=== PATIENT | female | born 1940 | race Caucasian/White ===

== ENCOUNTER 2018-09-10 14:43 | Inpatient (IN) | payer MEDICARE, BC ==
--- NOTE | 2018-09-10 14:58 | ED ---
Neurological HPI - HPI Summary HPI Summary: A 77 y/o female accompanied by family presents to the ED c/o weakness, appetite changes, and generalized body myalgia reaching 5/10 in severity. In the ED room , the patient has a pulse of 99 BPM, O2 saturation of 94%, and blood pressure of 125/69. As per triage, "not eating well for a week, increased weakness, fell 2 times this week and is now using wheel chair instead of a cane. last weekend diagnosed with anemia, lymphoma, low b13. saw MD Brandt Tuesday and wasn't feeling well, today worse. generalized pain every where, unable to define root cause". According to the patient, she cannot walk/maneuver around. She stated that she feels weak, however, nothing specific, but feels "plain yucky". She denies any nausea or fever, but does have appetite changes, cough and an ear ache. She noted that she is not in any pain, but just feels uncomfortable. These symptoms have been present for about 3 days. She stated that she was fine last week. Patient has cancer and is starting her treatment next week. Patient denies any heart murmur, but stated that her leg edema started 3-4 days ago and it is not normal for her. Patient further noted that she used her cane but fell down twice 4-5 days ago, so now she uses a walker. She stated that she was feeling unstable. - History of Current Complaint Chief Complaint: EDGeneral Stated Complaint: GENERAL ILLNESS Time Seen by Provider: 09/10/18 14:55 Hx Obtained From: Patient Onset/Duration: Sudden Onset, Started weeks ago, Still Present Timing: Constant Onset Severity: Moderate - 5/10 Current Severity: Moderate - 5/10 Number of Seizures: 0 Pain Intensity: 5 Pain Scale Used: 0-10 Numeric Character: Weak Syncope Timin Number of Episodes: 0 Aggravating: Nothing Alleviating: Nothing Associated Signs and Symptoms: Positive: Weakness, Pain - GENERALIZED BODY MYALGIA. Negative: Fever - Allergy/Home Medications Allergies/Adverse Reactions: Allergies Allergy/AdvReac Type Severity Reaction Status Date / Time No Known Allergies Allergy Verified 09/10/18 14:49 Home Medications: Home Medications Multivitamin with Minerals [One Daily Complete] 1 each PO DAILY 09/10/18 [ History Confirmed 09/10/18] Naproxen Sodium [Aleve] 220 mg PO DAILY 09/10/18 [History Confirmed 09/10/18] PMH/Surg Hx/FS Hx/Imm Hx Endocrine/Hematology History: Reports: Hx Thyroid Disease - hypothyroid Cardiovascular History: Reports: Hx Hypertension Denies: Hx Myocardial Infarction Respiratory History: Reports: Other Respiratory Problems/Disorders - emphysema Neurological History: Denies: Hx CVA, Hx Transient Ischemic Attacks (TIA) Infectious Disease History: No Infectious Disease History: Denies: Traveled Outside the [place] in Last 30 Days - Family History Known Family History: Negative: Cardiac Disease, Hypertension, Diabetes - Social History Alcohol Use: Occasionally Substance Use Type: Reports: None Smoking Status (MU): Light Every Day Tobacco Smoker Review of Systems Negative: Fever Positive: Ear Ache Positive: Cough Positive: Other - POSITIVE: APPETITE CHANGES. Negative: Nausea Positive: Weakness All Other Systems Reviewed And Are Negative: Yes Physical Exam - Summary Physical Exam Summary: Appearance: The patient is well-nourished in no acute distress and in no acute pain. Skin: The skin is warm and dry and skin color reflects adequate perfusion. Skin is tense HEENT: The head is normocephalic and atraumatic. The pupils are equal and reactive. The conjunctivae are clear and without drainage. Nares are patent and without drainage. Mouth reveals dry mucous membranes and the throat is without erythema and exudate. The external ears are intact. The ear canals are patent and without drainage. The tympanic membranes are intact. Neck: The neck is supple with full range of motion and non-tender. There are no carotid bruits. There is no neck vein distension. Respiratory: Chest is non-tender. Lungs are clear to auscultation and breath sounds are symmetrical and equal. Cardiovascular: Heart is regular rate and rhythm. Systolic ejection murmur. There is no peripheral edema and pulses are symmetrical and equal. Abdomen: The abdomen is soft and non-tender. There are normal bowel sounds heard in all four quadrants and there is no organomegaly palpated. Musculoskeletal: There is no back tenderness noted. Extremities are non-tender with full range of motion. There is good capillary refill. There is no calf tenderness elicited. Mild bilateral pedal edema. Neurological: Patient is alert and oriented to person, place and time. The patient has symmetrical motor strength in all four extremities. Cranial nerves are grossly intact. Deep tendon reflexes are symmetrical and equal in all four extremities. Psychiatric: The patient has an appropriate affect and does not exhibit any anxiety or depression. Triage Information Reviewed: Yes Vital Signs On Initial Exam: Initial Vitals Temp Pulse Resp BP Pulse Ox 99.3 F 101 19 125/67 96 09/10/18 14:46 09/10/18 14:46 09/10/18 14:46 09/10/18 14:46 09/10/18 14:46 Vital Signs Reviewed: Yes Diagnostics - Vital Signs Vital Signs Temp Pulse Resp BP Pulse Ox 09/10/18 14:46 99.3 F 101 19 125/67 96 - Laboratory Result Diagrams: 09/10/18 15:27 09/10/18 15:27 Lab Statement: Any lab studies that have been ordered have been reviewed, and results considered in the medical decision making process. - Radiology CXR Radiology Interpretation Completed By: Radiologist Summary of Radiographic Findings: Left lower lung zone airspace opacification. ED PHYSICIAN REVIEWED THIS RADIOLOGY REPORT. - EKG 1523 Cardiac Rate: NL - 94 BPM EKG Rhythm: Sinus Rhythm - [address] Segment: Normal Ectopy: None Summary of EKG Findings: Normal sinus rhythm, normal ST, no ectopy, no STEMI Course/Dx - Course Course Of Treatment: Ms. Bowens presented to the emergency department with a concern for increasing weakness over the last couple days. She is at the point now where she can't get out of bed. She was clinically dry on arrival and fluids were ordered for her while workup was in progress. The radiologist read her chest x-ray as a likely infiltrate and she was given Levaquin. She labs revealed a profound dehydration and Dr. Corona was contacted. He recommended more fluid benefit can get her feeling better admission otherwise discharge and follow-up. She didn't really improve with more fluid and the hospitalists were consulted for admission. - Diagnoses Provider Diagnoses: Severe dehydration, Pneumonia - Physician Notifications Discussed Care Of Patient With: Krystian Villasenor Time Discussed With Above Provider: 18:16 Instructed by Provider To: Other - ACCEPTS FOR ADMISSION. Discharge - Sign-Out/Discharge Documenting (check all that apply): Patient Departure - ADMIT, Sign-Out Patient - CABALLKARL Signing out patient TO: Krystian Villasenor Receiving patient FROM: Jone Garsia - Discharge Plan Condition: Stable Disposition: ADMITTED TO [facility] - Billing Disposition and Condition Condition: STABLE Disposition: Admitted to [facility] - Attestation Statements Document Initiated by Jim: Yes Documenting Scribe: Donnie Garber Provider For Whom Jim is Documenting (Include Credential): Jone Garsia MD Scribe Attestation: Donnie Mcclain, scribed for Jone Garsia MD on 09/10/18 at 2143. Scribe Documentation Reviewed: Yes Provider Attestation: The documentation as recorded by the naeibDonnie lyons accurately reflects the service I personally performed and the decisions made by me, Jone Garsia MD Status of Scribe Document: Viewed
[2018-09-10] MEDS ORDERED: NS 0.9% 1000 ML* 1,000 ML IV ONE ×2 (15:10→17:30)
[2018-09-10 15:42] LABS: INR 0.94 (0.77-1.02)
[2018-09-10 15:44] LABS: Hematocrit 27 % (35-47); Hemoglobin 8.6 g/dl (12.0-16.0); Mean Corpuscular HGB Conc 32 g/dl (31-36); Mean Corpuscular Hemoglobin 30 pg (27-31); Mean Corpuscular Volume 94 fL (80-97); Mean Platelet Volume 9.4 fL (7.4-10.4); Platelet Count 63 10^3/ul (150-450); Red Blood Count 2.88 10^6/ul (4.00-5.40); Red Cell Distribution Width 17 % (10.5-15); White Blood Count 8.4 10^3/ul (3.5-10.8)
[2018-09-10 15:53] LABS: Albumin 2.8 g/dL (3.2-5.2); Albumin/Globulin Ratio 1.2 (1-3); BUN/Creatinine Ratio 44.2 (8-20); C Reactive Protein 190.55 mg/L (<8.01); Calcium 11.3 mg/dL (8.6-10.3); EGFR Non-African American 72.3 (>60); Globulin 2.3 g/dL (2-4); Magnesium 1.9 mg/dL (1.9-2.7); Potassium 4.4 mmol/L (3.5-5.0); Total Bilirubin 1.1 mg/dL (0.2-1.0); Total Protein 5.1 g/dL (6.4-8.9)
[2018-09-10 16:17] LABS: Immature Granulocytes 2 % (0-9); Lymphocytes % 79 %; Neutrophil % 13 %; Variant Lymph % 6 % (0-6)
[2018-09-10 16:18] LABS: ABS Neutrophils 1.26 10^3/ul (1.5-7.7); Nucleated Red Blood Cells/100 1 (0-0)
[2018-09-10 16:23] LABS: TSH (Thyroid Stimulating Horm) 1.61 mcIU/mL (0.34-5.60)
[2018-09-10 17:28] LABS: Urine Appearance Cloudy; Urine Bacteria 1+ (Absent); Urine Bilirubin Negative (Negative); Urine Blood 1+ (Negative); Urine Color Amber; Urine Glucose Negative (Negative); Urine Ketones Negative (Negative); Urine Nitrite Positive (Negative); Urine Protein 1+(30 mg/dL) (Negative); Urine Red Blood Cell 3+(>10/hpf) (Absent); Urine Specific Gravity 1.024 (1.010-1.030); Urine Urobilinogen Positive (Negative); Urine White Blood Cell 2+(11-20/hpf) (Absent)
[2018-09-10] MEDS ORDERED: Acetaminophen TAB* 325 MG PO ONE (18:04)
[2018-09-10] MEDS ORDERED: Levofloxacin 750 MG IVPREMIX(* 750 MG/150 ML BAG IVPB ONE (18:26)
[2018-09-10] MEDS ORDERED: Nicotine Inhaler* 10 MG AMP INH PRN (20:44)
[2018-09-10] MEDS ORDERED: Mouth Piece, Nicotine* 1 EACH CARTRIDGE INH ONE (21:00)
[2018-09-10] MEDS: NS 0.9% 1000 ML* 1,000 ML IV SCH (21:03)
[2018-09-10] MEDS: Heparin VIAL(*) 5000 UNITS/ML VIAL (FIVE THOUSAND) SUBCUT SCH (21:20)
[2018-09-10] MEDS: cefTRIAXone(*) 1 GM in NS 0.9% 50 ML* 50 ML IVPB SCH (21:20)
--- NOTE | 2018-09-10 23:38 | HP ---
CC: Dr. Job Osullivan; Dr. Collins Brandt * HISTORY AND PHYSICAL: DATE OF ADMISSION: 09/10/18 PRIMARY CARE PROVIDER: Job Osullivan MD ONCOLOGIST: Collins Brandt MD ATTENDING PHYSICIAN: Yamilet Mar DO * (dictated by Jef Archer NP) CHIEF COMPLAINT: Weakness. HISTORY OF PRESENT ILLNESS: Ms. Bowens is a 77-year-old female with past medical history significant for hypertension, hypothyroidism, COPD, and a recent diagnosis of lymphoma who presents to the emergency room with complaint of 2 weeks of generalized weakness. She has recently been diagnosed with lymphoma and scheduled to have outpatient PET scan on , 09/14/18, and to start chemotherapy on 09/15/18. She denies any fevers, chills, chest pain. She reports a nonproductive cough for 2 weeks. She reports having shortness of breath for a few days, worse with exertion. Although she has been having difficulty ambulating, she has recently had a couple falls and has started ambulating with a walker. She denies nausea, vomiting, diarrhea, abdominal pain , urinary symptoms such as dysuria, urgency, or frequency. She does note voiding 2 to 3 times at night but states this is close her normal. She reports feeling a dry mouth and dry sinuses. She did get a flu shot this fall. She denies any runny nose, congestion, myalgia, or arthralgia. She has been complaining of right ear pain and has been using over- the-counter drops for this. Additionally, she developed an intermittent headache today. She states that she has been drinking, but not eating well due to a poor appetite. Due to her weakness, she decided to present to the emergency room for further evaluation of her symptoms. While in the emergency room, she had labs showing anemia near her baseline, thrombocytopenia slightly below her baseline, but she has been thrombocytopenic since July of last year. Her sodium is slightly low. She had lactic acid of 2.2, slightly high calcium, a CRP of 190.55, alkaline phos of 373. She had urinalysis showing 1+ protein, 1+ blood, positive for nitrites, positive urobilinogen, 1+ leukocyte esterase, 2+ wbc's, 3+ rbc's, squamous epithelial cells present, 1+ bacteria. She had a chest x-ray showing a left lower lung zone airspace opacification. Additionally, she had an EKG showing a sinus rhythm, no acute signs of ischemia, and due to her symptoms and workup with the hospitalists, we are asked to evaluate the patient for admission. PAST MEDICAL HISTORY: 1. Hypertension. 2. Hypothyroidism. 3. COPD - emphysema. 4. Lymphoma. PAST SURGICAL HISTORY: Status post appendectomy. HOME MEDICATIONS: Include: 1. Naproxen 220 mg oral daily. 2. Multivitamin 1 tablet oral daily. 3. Lisinopril/hydrochlorothiazide 20/12.5; she has not been taking it; she has felt dehydrated. 4. Levothyroxine 150 mcg oral daily. ALLERGIES: No known drug allergies. FAMILY HISTORY: She denies family history of coronary artery disease, diabetes , or cancer. SOCIAL HISTORY: The patient reports being a former smoker, quitting many years ago when she had babies, but according to her son, she is a current smoker, smoking less than half a pack a day. She denies alcohol, recreational drug use. Her , Ulises Bowens, will be her surrogate decision maker in the event she is unable to make decisions for herself. REVIEW OF SYSTEMS: I performed an 11-point review of systems. All the pertinent positives and negatives are mentioned in the history of present illness. The remaining review of systems is negative. PHYSICAL EXAMINATION GENERAL APPEARANCE: She is a alert, pleasant, appears to be in no acute distress. VITAL SIGNS: Temperature 99.3, heart rate 95, respiratory rate 23, O2 sat 99% on 2 L via nasal cannula, blood pressure 115/69. HEENT: Normocephalic, atraumatic. Pupils are equal and reactive to light. Extraocular movements are intact. Ears: Unable to visualize tympanic membranes bilateral, the right ear has white moist looking cerumen and the left ear has joe- colored dry cerumen. RESPIRATORY: There is no accessory muscle use. Her lungs are clear, but diminished, bilateral. CARDIOVASCULAR: Regular rate and rhythm. S1, S2 present. There are no murmurs , rubs, or gallops heard. ABDOMEN: Soft, nontender, nondistended. Bowel sounds present x4. EXTREMITIES: There is 1+ bilateral lower extremity edema. DP and PT pulses are 1+ and symmetric. MUSCULOSKELETAL: There is no clubbing or cyanosis noted. The patient exhibits good strength in all extremities. NEUROLOGICAL: The patient is alert and oriented x4. Cranial nerves II through XII are grossly intact. PSYCHOLOGICAL: She is calm and cooperative. SKIN: There are no rashes or abnormalities seen. DIAGNOSTIC STUDIES/LABORATORY DATA: Sodium 134, potassium 4.4, chloride 101, CO2 26, BUN 34, creatinine 0.77, glucose 115. White blood cell count 8.4, hemoglobin 8.6, hematocrit 27, platelet count 63. Alk phos 373. Lactic acid 2.2. CRP 190.55. Urinalysis again shows protein 1+, blood 1+, nitrite positive, urobilinogen positive, leukocyte esterase 1+, wbc's 2+, rbc's 3+, squamous epithelial cells present, bacteria 1+. The patient has significantly elevated CRP of 190, elevated lactic acid. She is on 2 L of oxygen with sats of 98%. With her tachycardia and intermittent tachypnea, she is meeting to SIRS criteria. She has received liter of fluids in the emergency room. I will continue her on fluids. EKG showed a sinus rhythm, rate of 94. There are no acute signs of ischemia. This is similar to previous EKG from 03/29/16. Chest x-ray from today. Radiologist's impression: Left lower lung zone airspace opacification. IMPRESSION: Ms. Bowens is a 77-year-old female with a past medical history significant for hypertension, hypothyroidism, COPD, and lymphoma who presents to the emergency room with complaints of weakness, was found to have urinary tract infection, suspected typical community-acquired pneumonia, and weakness. She will be admitted as an inpatient. ASSESSMENT/PLAN: 1. Urinary tract infection. The patient has a positive urinalysis. She denies urinary symptoms. We will place her ceftriaxone and give her IV hydration. Blood cultures will be collected. 2. Suspected community-acquired pneumonia. The patient has a wide mediastinum on chest x-ray. Has had a cough for 2 weeks. I suspect this could represent a typical pneumonia. I am going to just place her on ceftriaxone. I do not feel this is atypical, so I will hold off on azithromycin and just treat her with monotherapy. Again, blood cultures have been obtained. We will check urine for Strep pneumoniae and Legionella. Additionally, we will get a sputum culture if able. 3. Weakness. The patient has generalized weakness. I suspect this is secondary to her infections. We will ask Physical Therapy to see her. 4. Hypothyroidism. The patient's TSH today 1.61. 5. Hypertension. She has been normotensive in the emergency room. I am going to continue to hold her lisinopril and hydrochlorothiazide in the setting of her acute illness and give her IV fluids. If her blood pressures remain in the 120s off of the lisinopril and hydrochlorothiazide, this could be discontinued as blood pressures are within goal range for somebody of her age. 6. Chronic obstructive pulmonary disease. There is no wheezing. No signs of COPD exacerbation at this time. She is not on any maintenance inhalers. I will monitor her closely in the setting of pneumonia for COPD exacerbation. 7. Lymphoma. Management per Oncology. 8. Tobacco abuse. The patient states she is not smoking but her son reports that she is smoking. I will offer her nicotine replacement. 9. Anemia. The patient's anemia appears to be at her baseline. 10. Fluids, electrolytes, and nutrition. She will be on heart healthy diet. 11. Code status. DNR. A MOLST form has been completed and placed on her chart. 12. DVT prophylaxis. She is at high risk. She will have subcu heparin. We are going to monitor her platelet count closely. If she drops below 50, we will hold chemical DVT prophylaxis. 13. Disposition. Inpatient. TIME SPENT: Time for this admission was approximately 60 minutes, greater than half of that was spent with the patient and her son discussing medications, past medical history, the events leading up to her arrival today and performing a physical examination. The case was reviewed with the attending, Dr. Mar, who agrees with the plan of care. JEF ARCHER, MOOSE [id number]/CPS #: [id number] TRIP
[2018-09-11] MEDS: Levothyroxine TAB* 150 MCG TAB PO SCH (05:07)
[2018-09-11] MEDS: Heparin VIAL(*) 5000 UNITS/ML VIAL (FIVE THOUSAND) SUBCUT SCH ×2 (05:07→14:34)
[2018-09-11 06:48] LABS: Hematocrit 24 % (35-47); Hemoglobin 7.5 g/dl (12.0-16.0); Mean Corpuscular HGB Conc 32 g/dl (31-36); Mean Corpuscular Hemoglobin 30 pg (27-31); Mean Corpuscular Volume 94 fL (80-97); Mean Platelet Volume 9.5 fL (7.4-10.4); Platelet Count 43 10^3/ul (150-450); Red Blood Count 2.54 10^6/ul (4.00-5.40); Red Cell Distribution Width 18 % (10.5-15); White Blood Count 7.3 10^3/ul (3.5-10.8)
[2018-09-11 06:56] LABS: BUN/Creatinine Ratio 39.4 (8-20); C Reactive Protein 169.77 mg/L (<8.01); Calcium 10.1 mg/dL (8.6-10.3); EGFR Non-African American 86.4 (>60); Potassium 4.3 mmol/L (3.5-5.0)
[2018-09-11 07:51] LABS: Lymphocytes % 52 %; Monocytes % 5 %; Neutrophil % 36 %; Nucleated Red Blood Cells/100 1 (0-0); Variant Lymph % 7 % (0-6)
[2018-09-11 07:52] LABS: Polychromasia 1+; Tear Drop Cells 1+
[2018-09-11 07:55] LABS: ABS Neutrophils 2.6 10^3/ul (1.5-7.7)
[2018-09-11] MEDS: NS 0.9% 1000 ML* 1,000 ML IV SCH (08:30)
--- NOTE | 2018-09-11 09:21 | PN ---
Progress Note - Progress Note Date of Service: 09/11/18 SOAP: Subjective: []Not feeling much better. Progressive weakness over 2 weeks. No fevers at home. Polyuria, no cough no SOB. Acetaminophen (Tylenol Tab*) 650 mg PO Q4H PRN PRN Reason: FEVER/PAIN Heparin Sodium (Porcine) (Heparin Vial(*)) 5,000 units SUBCUT Q8HR [facility] Last Admin: 09/11/18 05:07 Dose: 5,000 units Ceftriaxone Sodium 1 gm/ (Sodium Chloride) 50 mls @ 200 mls/hr IVPB Q24H [facility] Last Admin: 09/10/18 21:20 Dose: 200 mls/hr Sodium Chloride (Ns 0.9% 1000 Ml*) 1,000 mls @ 100 mls/hr IV PER RATE [facility] Last Admin: 09/11/18 08:30 Dose: 100 mls/hr Levothyroxine Sodium (Synthroid Tab*) 150 mcg PO 0600 [facility] Last Admin: 09/11/18 05:07 Dose: 150 mcg Nicotine (Nicotine Inhaler*) 10 mg INH Q2H PRN PRN Reason: CRAVING Objective: [] Vital Signs Temp Pulse Resp BP Pulse Ox 97.6 F 101 22 109/60 96 09/11/18 08:11 09/11/18 08:11 09/11/18 08:11 09/11/18 08:11 09/11/18 08:11 HEENT pale, no lesions CTA RRR S1S2 +BS, cannot feel spleen Tr edema Laboratory Results - last 24 hr 09/10/18 09/10/18 09/10/18 15:27 15:27 15:27 WBC 8.4 RBC 2.88 L Hgb 8.6 L Hct 27 L MCV 94 MCH 30 MCHC 32 RDW 17 H Plt Count 63 L MPV 9.4 Neut % (Auto) Not Reportable Lymph % (Auto) Not Reportable Quay % (Auto) Not Reportable Eos % (Auto) Not Reportable Baso % (Auto) Not Reportable Absolute Neuts (auto) Not Reportable Absolute Lymphs (auto) Not Reportable Absolute Monos (auto) Not Reportable Absolute Eos (auto) Not Reportable Absolute Basos (auto) Not Reportable Absolute Nucleated RBC Not Reportable Immature Gran % 2 Neutrophils % 13 Band Neutrophils % 2 Lymphocytes % 79 Reactive Lymphs % 6 Monocytes % Nucleated RBC % Not Reportable Abs Neuts (Manual) 1.26 L Abs Lymphs (Manual) 7.225 H Abs Monocytes (Manual) Nucleated RBCs/100 WBC 1 H Normal RBC Morphology Normal Polychromasia Anisocytosis Tear Drop Cells INR (Anticoag Therapy) 0.94 Sodium 134 L Potassium 4.4 Chloride 101 Carbon Dioxide 26 Anion Gap 7 BUN 34 H Creatinine 0.77 Est GFR ( Amer) 87.5 Est GFR (Non-Af Amer) 72.3 BUN/Creatinine Ratio 44.2 H Glucose 115 H Lactic Acid Calcium 11.3 H Magnesium 1.9 Total Bilirubin 1.10 H AST 65 H ALT 44 Alkaline Phosphatase 373 H Troponin I 0.01 C-Reactive Protein 190.55 H B-Natriuretic Peptide Total Protein 5.1 L Albumin 2.8 L Globulin 2.3 Albumin/Globulin Ratio 1.2 TSH 1.61 Urine Color Urine Appearance Urine pH Ur Specific [place] Urine Protein Urine Ketones Urine Blood Urine Nitrate Urine Bilirubin Urine Urobilinogen Ur Leukocyte Esterase Urine WBC (Auto) Urine RBC (Auto) Ur Squamous Epith Cells Urine Bacteria Urine Glucose 09/10/18 09/10/18 09/10/18 15:27 15:27 17:17 WBC RBC Hgb Hct MCV MCH MCHC RDW Plt Count MPV Neut % (Auto) Lymph % (Auto) Quay % (Auto) Eos % (Auto) Baso % (Auto) Absolute Neuts (auto) Absolute Lymphs (auto) Absolute Monos (auto) Absolute Eos (auto) Absolute Basos (auto) Absolute Nucleated RBC Immature Gran % Neutrophils % Band Neutrophils % Lymphocytes % Reactive Lymphs % Monocytes % Nucleated RBC % Abs Neuts (Manual) Abs Lymphs (Manual) Abs Monocytes (Manual) Nucleated RBCs/100 WBC Normal RBC Morphology Polychromasia Anisocytosis Tear Drop Cells INR (Anticoag Therapy) Sodium Potassium Chloride Carbon Dioxide Anion Gap BUN Creatinine Est GFR ( Amer) Est GFR (Non-Af Amer) BUN/Creatinine Ratio Glucose Lactic Acid 2.2 H* Calcium Magnesium Total Bilirubin AST ALT Alkaline Phosphatase Troponin I C-Reactive Protein B-Natriuretic Peptide 32 Total Protein Albumin Globulin Albumin/Globulin Ratio TSH Urine Color Veronica Urine Appearance Cloudy Urine pH 5.0 Ur Specific [place] 1.024 Urine Protein 1+(30 mg/dl) A Urine Ketones Negative Urine Blood 1+ A Urine Nitrate Positive A Urine Bilirubin Negative Urine Urobilinogen Positive A Ur Leukocyte Esterase 1+ A Urine WBC (Auto) 2+(11-20/hpf) A Urine RBC (Auto) 3+(>10/hpf) A Ur Squamous Epith Cells Present A Urine Bacteria 1+ A Urine Glucose Negative 09/10/18 09/11/18 09/11/18 19:35 06:25 06:25 WBC 7.3 RBC 2.54 L Hgb 7.5 L Hct 24 L MCV 94 MCH 30 MCHC 32 RDW 18 H Plt Count 43 L MPV 9.5 Neut % (Auto) Not Reportable Lymph % (Auto) Not Reportable Quay % (Auto) Not Reportable Eos % (Auto) Not Reportable Baso % (Auto) Not Reportable Absolute Neuts (auto) Absolute Lymphs (auto) Pharmaceutical Service Representative Absolute Monos (auto) Pharmaceutical Service Representative Absolute Eos (auto) Pharmaceutical Service Representative Absolute Basos (auto) Pharmaceutical Service Representative Absolute Nucleated RBC Not Reportable Immature Gran % Neutrophils % 36 Band Neutrophils % Lymphocytes % 52 Reactive Lymphs % 7 H Monocytes % 5 Nucleated RBC % Not Reportable Abs Neuts (Manual) 2.6 Abs Lymphs (Manual) 4.3 Abs Monocytes (Manual) 0.4 Nucleated RBCs/100 WBC 1 H Normal RBC Morphology Not Reportable Polychromasia 1+ Anisocytosis 1+ Tear Drop Cells 1+ INR (Anticoag Therapy) Sodium 135 Potassium 4.3 Chloride 106 Carbon Dioxide 24 Anion Gap 5 BUN 26 H Creatinine 0.66 Est GFR ( Amer) 104.5 Est GFR (Non-Af Amer) 86.4 BUN/Creatinine Ratio 39.4 H Glucose 94 Lactic Acid 0.9 Calcium 10.1 Magnesium Total Bilirubin AST ALT Alkaline Phosphatase Troponin I C-Reactive Protein 169.77 H B-Natriuretic Peptide Total Protein Albumin Globulin Albumin/Globulin Ratio TSH Urine Color Urine Appearance Urine pH Ur Specific [place] Urine Protein Urine Ketones Urine Blood Urine Nitrate Urine Bilirubin Urine Urobilinogen Ur Leukocyte Esterase Urine WBC (Auto) Urine RBC (Auto) Ur Squamous Epith Cells Urine Bacteria Urine Glucose Assessment: []77 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 Presents with progressive weakness. Evaluation + UTI, modest increase in Lactic acid. Now volume replete and on antibiotics but still not feeling well. DDx for weakness is lymphoma and UTI. Plan: []1. Continue Ceftriaxone 2. Low blood counts 2nd to MZL, Tx 2 UPRBC and hold IVF 3. If not better in next 2 days, CT scan. If significant disease burden, will to to R-CVP over Rituximab single agent.
[2018-09-11] MEDS: cefTRIAXone(*) 1 GM in NS 0.9% 50 ML* 50 ML IVPB SCH (20:00)
[2018-09-12] MEDS: Levothyroxine TAB* 150 MCG TAB PO SCH (05:29)
[2018-09-12 07:01] LABS: Albumin 2.1 g/dL (3.2-5.2); Albumin/Globulin Ratio 0.9 (1-3); EGFR Non-African American 106.6 (>60); Globulin 2.3 g/dL (2-4); Potassium 3.9 mmol/L (3.5-5.0); Total Bilirubin 1.1 mg/dL (0.2-1.0); Total Protein 4.4 g/dL (6.4-8.9)
[2018-09-12 08:58] LABS: Hematocrit 27 % (35-47); Hemoglobin 8.8 g/dl (12.0-16.0); Mean Corpuscular HGB Conc 33 g/dl (31-36); Mean Corpuscular Hemoglobin 30 pg (27-31); Mean Corpuscular Volume 92 fL (80-97); Red Blood Count 2.93 10^6/ul (4.00-5.40); Red Cell Distribution Width 18 % (10.5-15); White Blood Count 10.7 10^3/ul (3.5-10.8)
[2018-09-12 09:19] LABS: Immature Granulocytes 1 % (0-9); Lymphocytes % 66 %; Monocytes % 5 %; Neutrophil % 12 %; Nucleated Red Blood Cells/100 1 (0-0); Variant Lymph % 16 % (0-6)
[2018-09-12 09:22] LABS: Polychromasia 1+
[2018-09-12 09:27] LABS: ABS Neutrophils 1.39 10^3/ul (1.5-7.7)
[2018-09-12] MEDS ORDERED: Iohexol 300* (CONTRAST) 10 ML SDV IV ONE (10:11)
[2018-09-12 10:41] LABS: Mean Platelet Volume 10.8 fL (7.4-10.4); Platelet Count 41 10^3/ul (150-450)
[2018-09-12] MEDS: cefTRIAXone(*) 1 GM in NS 0.9% 50 ML* 50 ML IVPB SCH (20:21)
[2018-09-13] MEDS: Acetaminophen TAB* 325 MG PO PRN ×2 (01:40→19:44)
[2018-09-13] MEDS: Levothyroxine TAB* 150 MCG TAB PO SCH (05:27)
[2018-09-13 07:17] LABS: ABS Nucleated RBC 0 10^3/ul; Hematocrit 30 % (35-47); Hemoglobin 9.7 g/dl (12.0-16.0); Mean Corpuscular HGB Conc 32 g/dl (31-36); Mean Corpuscular Hemoglobin 29 pg (27-31); Mean Corpuscular Volume 91 fL (80-97); Mean Platelet Volume 9.8 fL (7.4-10.4); Nucleated Red Blood Cells % 0.2; Platelet Count 36 10^3/ul (150-450); Red Blood Count 3.32 10^6/ul (4.00-5.40); Red Cell Distribution Width 17 % (10.5-15); White Blood Count 11.1 10^3/ul (3.5-10.8)
[2018-09-13] MEDS ORDERED: Loperamide CAP* 2 MG PO PRN (10:32)
[2018-09-13 12:59] LABS: Immature Granulocytes 1 % (0-9); Lymphocytes % 46 %; Neutrophil % 16 %; Variant Lymph % 37 % (0-6)
[2018-09-13 13:01] LABS: Polychromasia 1+
[2018-09-13 13:03] LABS: ABS Neutrophils 1.9 10^3/ul (1.5-7.7)
--- NOTE | 2018-09-13 15:41 | PN ---
Progress Note - Progress Note Date of Service: 09/13/18 SOAP: Subjective: []Pt. seen and examine this AM. Feeling well today and has been up moving in room fairly independently. Would like to go home. Denies pain with urination. Has been having some frequent, loose BMs. Has been coughing, but only a little and denies overt SOB. Spoke with patient's son, Landen, over the phone who states multiple concerns regarding Mrs. Bowens's ability to go home independently due to limited support from her disabled . Medications: Acetaminophen (Tylenol Tab*) 650 mg PO Q4H PRN PRN Reason: FEVER/PAIN Last Admin: 09/13/18 01:40 Dose: 650 mg Ceftriaxone Sodium 1 gm/ (Sodium Chloride) 50 mls @ 200 mls/hr IVPB Q24H JOHNNIE Last Admin: 09/12/18 20:21 Dose: 200 mls/hr Levothyroxine Sodium (Synthroid Tab*) 150 mcg PO 0600 JOHNNIE Last Admin: 09/13/18 05:27 Dose: 150 mcg Loperamide HCl (Imodium Cap*) 2 mg PO Q2H PRN PRN Reason: DIARRHEA Nicotine (Nicotine Inhaler*) 10 mg INH Q2H PRN PRN Reason: CRAVING Objective: [] Vital Signs Temp Pulse Resp BP Pulse Ox 96.9 F 86 20 117/61 100 09/13/18 11:25 09/13/18 11:25 09/13/18 11:25 09/13/18 11:25 09/13/18 11:25 A&Ox3, EOMI, neuro grossly non-focal HRR, S1S2 LS with fine crackles to bases, no wheeze noted +BS, abd. soft and non-tender Spleen edge approx. 3-4 cm below ribs Trace peripheral edema Laboratory Results - last 24 hr 09/13/18 07:05 WBC 11.1 H RBC 3.32 L Hgb 9.7 L Hct 30 L MCV 91 MCH 29 MCHC 32 RDW 17 H Plt Count 36 L MPV 9.8 Absolute Nucleated RBC 0 Immature Gran % 1 Neutrophils % 16 Band Neutrophils % 1 Lymphocytes % 46 Reactive Lymphs % 37 H D Nucleated RBC % 0.2 Abs Neuts (Manual) 1.9 Abs Lymphs (Manual) 9.2 H Normal RBC Morphology Not Reportable Polychromasia 1+ Hypochromasia 1+ Anisocytosis 1+ Elliptocytes 1+ Assessment: []77 yo with recent diagnosis of marginal zone lymphoma presenting to the ER with progressive weakness found to have a UTI as well bilateral infiltrates on CT of chest yesterday. She has improved clinically and we discussed discharge at length, she is agreeable to subacute rehab. Plan: []1. Infection: PNA and UTI appear to be resolving in terms of her clinical presentation - may consider repeat CT chest in 8 weeks to follow though if she is asymptomatic may not require - plan d/c with oral antibiotics to complete 14 days (day 4 today) 2. Lymphoma: CT with spleen at least 17 cm, question of splenic marginal zone lymphoma as there is not a high burden of adenopathy otherwise - plan Rituximab weekly x4, delay start until next week Dispo: d/c tomorrow to [facility] (bed offered however can not accept patients after 2pm) >40 min spent with >50% face to face counseling
[2018-09-13] MEDS: cefTRIAXone(*) 1 GM in NS 0.9% 50 ML* 50 ML IVPB SCH (19:42)
[2018-09-14] MEDS: Levothyroxine TAB* 150 MCG TAB PO SCH (07:35)
--- NOTE | 2018-09-14 11:12 | DS ---
CC: Dr. Osullivan; Dr. Brandt * DISCHARGE SUMMARY: DATE OF ADMISSION: 09/10/18 DATE OF DISCHARGE: 09/14/18 PRIMARY CARE PROVIDER: Dr. Osullivan. PRIMARY ONCOLOGIST: Dr. Brandt. ATTENDING PHYSICIAN: Dr. Corona.* (DICTATED BY MARISEL SOUSA) DISCHARGING PROVIDER: MARISEL Sousa. PRIMARY DISCHARGE DIAGNOSES: 1. Pneumonia. 2. Urinary tract infection. 3. Marginal zone lymphoma. 4. Significant splenomegaly secondary to lymphoma. 5. Anemia and thrombocytopenia likely secondary to bone marrow infiltration secondary to her lymphoma. SECONDARY DISCHARGE DIAGNOSES: 1. Hypertension - normotensive to slightly hypotensive during this hospitalization and her antihypertensive medications were discontinued at the time of discharge. 2. Hypothyroidism - currently euthyroid state. 3. History of chronic obstructive pulmonary disease without associated exacerbation. HOSPITAL IMAGIN. Chest x-ray 09/10/18 shows a left lower lung zone air space opacification. 2. CT chest, abdomen and pelvis shows multifocal consolidation within both lungs and small to moderate bilateral pleural effusions. Liver measures 20 cm with a partially calcified cyst. The spleen is enlarged measuring up to 22 cm in long axis with mesenteric and retroperitoneal lymphadenopathy primarily in the upper abdomen with a small amount of ascites. DISCHARGE MEDICATIONS: 1. Levothyroxine 150 mcg p.o. daily. 2. Multivitamin 1 tablet p.o. daily. 3. Levaquin 500 mg p.o. daily x10 days. HOSPITAL COURSE: This is a 77-year-old female with a recent diagnosis of lymphoma currently under the care of Dr. Brandt who presented to the emergency department with complaints of generalized malaise over the preceding 2 weeks. She had had a mild dry cough, but afebrile. Initial labs showed anemia and thrombocytopenia, but no leukocytosis. Her initial chemistries showed mildly elevated lactic acid to 2.2, slight elevation in transaminases, significantly elevated CRP to 190 and a normal TSH of 1.62. She was afebrile at the time. Initial chest x-ray demonstrated a left lower lobe infiltrates in her urinalysis was suggestive of a urinary tract infection. Patient was subsequently admitted for pneumonia and urinary tract infection and was subsequently treated with ceftriaxone. Patient's energy improved and she remained afebrile throughout her hospitalization. She was not hypoxic or had other respiratory complications. Her urine culture grew E. coli, which was layton sensitive and blood cultures remained negative. CT chest, abdomen and pelvis demonstrated bilateral infiltrates [employer] representative of pneumonia as well as a very large spleen measuring up to 22 cm in long axis with associated mesenteric and retroperitoneal lymphadenopathy reflective of her known lymphoma. She was initially scheduled to start chemotherapy with weekly rituximab treatments on Tuesday09/15/18, but due to her acute infection, this has been delayed to start Tuesday09/18/18. The patient has had progressive thrombocytopenia likely secondary to her lymphoma during this hospitalization and her platelets at the time of discharge are 36,000. DISPOSITION AND FOLLOWUP PLAN: The patient is being discharged to [facility] for subacute rehab with plans to start weekly rituximab therapy x4 cycles for marginal zone lymphoma. The patient will follow up Dr. Brandt in the clinic on at 12 p.m. Recommend Levaquin for additional 10 days for continued and definitive of her pneumonia and urinary tract infection. MARISEL SOUSA [id number]/[facility] #: [id number] [facility]OSPITAL CENTERBrodie
[2018-09-14 12:33] VITALS: BP 108/60
== END 2018-09-14 13:24 | DRG 689 ==
LOC: ED 14:43 → MED 19:20
PROVIDERS: ADMIT Internal Medicine; ATTEND Internal Medicine Hematology & Oncology
PROC: 30233N1 Transfusion of Nonautologous Red Blood Cells into Peripheral Vein, Percutaneous Approach (ICD-10-PCS; principal; 2018-09-11)
DX: N39.0 Urinary tract infection, site not specified (principal); J18.9 Pneumonia, unspecified organism; C85.90 Non-Hodgkin lymphoma, unspecified, unspecified site; J90 Pleural effusion, not elsewhere classified; R18.8 Other ascites; E03.9 Hypothyroidism, unspecified; I10 Essential (primary) hypertension; E86.0 Dehydration; J43.9 Emphysema, unspecified; H92.01 Otalgia, right ear; D64.9 Anemia, unspecified; D69.6 Thrombocytopenia, unspecified; B96.20 Unspecified Escherichia coli [E. coli] as the cause of diseases classified elsewhere; F17.210 Nicotine dependence, cigarettes, uncomplicated; R16.1 Splenomegaly, not elsewhere classified; K76.89 Other specified diseases of liver; R59.0 Localized enlarged lymph nodes; Z72.89 Other problems related to lifestyle
CPT/HCPCS: 36415; 71045; 71260; 74177; 80048; 80053; 81003; 81015; 81479; 83605; 83735; 83880; 84443; 84484; 85025; 85060; 85610; 86140; 86850; 86900; 86901; 86922; 87040; 87077; 87086; 87186; 87899; 93005; 99232; 99239; 99284; A9270-GY; G8978-GP-CK; G8979-GP-CJ; J0696; J1644; P9040; Q9967

== ENCOUNTER 2018-10-05 14:12 | Inpatient (IN) | payer MEDICARE, BC ==
[2018-10-05] MEDS ORDERED: NS 0.9% 1000 ML** 1,000 ML IV ONE (14:51)
--- NOTE | 2018-10-05 14:55 | ED ---
Shortness of Breath - HPI Summary HPI Summary: Patient is a 77-year-old female on chemotherapy and hx of lymphoma presenting with worsening thrush. Patient has been being treated with oral nystatin for thrush for several weeks since beginning chemotherapy, but notes it has gotten worse 2 days ago after her most recent round of chemo. Patient experienced difficulty breathing/shortness of breath last night and was placed on 2L of oxygen. Also admits to cough and mouth pain. Patient has not been able to eat or drink due to the pain. Patient denies chest pain, fever, headache, N/V/D, or urinary symptoms. no fevers. - History of Current Complaint Chief Complaint: EDShortnessOfBreath Time Seen by Provider: 10/05/18 14:34 Hx Obtained From: Patient Onset/Duration: Gradual Onset, Worse Since - 2 days ago Timing: Constant Current Severity: Severe Aggrevating Factors: Other - swallowing Alleviating Factors: Oxygen Associated Signs & Symptoms: Cough (Productive) - Allergy/Home Medications Allergies/Adverse Reactions: Allergies Allergy/AdvReac Type Severity Reaction Status Date / Time No Known Allergies Allergy Verified 10/05/18 14:16 Home Medications: Home Medications Acetaminophen TAB* [Tylenol TAB*] 650 mg PO Q4H PRN 10/05/18 [History Confirmed 10/05/18] Lactose-Reduced Food [Ensure Liquid] 237 ml PO ACHS 10/05/18 [History Confirmed 10/05/18] Levothyroxine TAB* [Synthroid TAB*] 150 mcg PO DAILY 10/05/18 [History Confirmed 10/05/18] PMH/Surg Hx/FS Hx/Imm Hx Endocrine/Hematology History: Reports: Hx Thyroid Disease - hypothyroid Denies: Hx Diabetes Cardiovascular History: Reports: Hx Hypertension Denies: Hx Myocardial Infarction Respiratory History: Reports: Other Respiratory Problems/Disorders - emphysema History: Denies: Hx Renal Disease Sensory History: Reports: Hx Contacts or Glasses - Glasses, son took home with him Denies: Hx Hearing Aid Opthamlomology History: Reports: Hx Contacts or Glasses - Glasses, son took home with him Neurological History: Denies: Hx CVA, Hx Transient Ischemic Attacks (TIA) - Cancer History Hx Chemotherapy: Yes Infectious Disease History: No Infectious Disease History: Denies: Traveled Outside the [place] in Last 30 Days - Family History Known Family History: Negative: Cardiac Disease, Hypertension, Diabetes - Social History Alcohol Use: None Substance Use Type: Reports: None Smoking Status (MU): Light Every Day Tobacco Smoker Review of Systems Negative: Fever, Chills Eyes: Negative Positive: Other - Mouth pain . Negative: Sore Throat Negative: Palpitations, Chest Pain Positive: Shortness Of Breath, Cough Gastrointestinal: Negative Negative: Abdominal Pain, Vomiting, Diarrhea, Nausea Genitourinary: Negative Negative: pain Skin: Negative Neurological: Negative Negative: Headache Psychological: Normal All Other Systems Reviewed And Are Negative: Yes Physical Exam Triage Information Reviewed: Yes Vital Signs On Initial Exam: Initial Vitals Temp Pulse Resp BP Pulse Ox 99.7 F 97 20 146/96 95 10/05/18 14:16 10/05/18 14:16 10/05/18 14:16 10/05/18 14:16 10/05/18 14:16 Vital Signs Reviewed: Yes Appearance: Positive: Ill-Appearing, Pain Distress, Thin Skin: Positive: Warm, Dry, Pale Head/Face: Positive: Normal Head/Face Inspection Eyes: Positive: Normal, EOMI, EVER ENT: Positive: Hearing grossly normal - wears hearing aid, Pharyngeal erythema, TMs normal, Other - Oral cavity with thick, blood-tinged secretions. Pharynx with erythema and heavy secretions. Thick-white patches along side of mouth. Poor dentition. Chapped right lower lip with small amount of bleeding.. Negative: Nasal congestion, Nasal drainage Dental: Positive: Other - Poor dentition Neck: Positive: Supple, Nontender, No Lymphadenopathy Respiratory/Lung Sounds: Positive: Clear to Auscultation, Breath Sounds Present Cardiovascular: Positive: Normal, RRR Abdomen Description: Positive: Nontender, No Organomegaly, Soft Bowel Sounds: Positive: Present Musculoskeletal: Positive: Normal, Strength/ROM Intact Neurological: Positive: Normal, Sensory/Motor Intact, Alert, Oriented to Person Place, Time, CN Intact II-III Psychiatric: Positive: Normal AVPU Assessment: Alert Diagnostics - Vital Signs Vital Signs Temp Pulse Resp BP Pulse Ox 10/05/18 14:16 99.7 F 97 20 146/96 95 - Laboratory Result Diagrams: 10/05/18 15:01 10/05/18 15:01 Lab Statement: Any lab studies that have been ordered have been reviewed, and results considered in the medical decision making process. - Radiology chest Radiology Interpretation Completed By: Radiologist Summary of Radiographic Findings: IMPRESSION: Cardiomegaly with interstitial edema consistent with left pleural effusion and. CHF. - EKG No standard instances Cardiac Rate: NL EKG Rhythm: Sinus Rhythm EKG Comparison: No Significant Change Summary of EKG Findings: sinus rhythm Re-Evaluation - Re-Evaluation First Eval Comment: patient states will not eat or drink due to pain. will try GI cocktail for pain. Second Eval Re-Evaluation Time: 16:46 Comment: o2 stats dropped to 78 requiring o2 to be increased till 6 liters on nasal cannuli. nurse had to perform sunction at patient is not able to clear throat. Course/Dx - Course Course Of Treatment: 77 -year-old female presents with mouth pain for the past couple days. States she is on nystatin for candidiasis. She states that after he fell on Tuesday she has been having twitching that she does not want to eat or drink. States she feels very weak. She also noticed increased edema in her legs. No chest pain or shortness breath. She notes occasional cough. On exam has edema noted to legs. Mouth has thick secretions with white discharge across her pharynx. lab work wbc low 1.7. kidney function is okay. discussed with pritesh burr who recommends start fluconazole. gave gi cocktail and no relief. she attempted to drink fluid but was unable to. gave dose of IV fluconazole. patient then dropped her o2 stat to 78 and required increase in oxygen to 6liters nasal cannuli which she can not go back to half-way with. discussed with pritesh burr who agrees to admit. - Diagnoses Differential Diagnosis/HQI/PQRI: Positive: CHF, Pulmonary Edema, Other - candidiasis Provider Diagnoses: CHF (congestive heart failure), Oral candidiasis Discharge - Sign-Out/Discharge Documenting (check all that apply): Patient Departure - Discharge Plan Condition: Stable Disposition: ADMITTED TO [facility] Referrals: Job Osullivan MD [Primary Care Provider] - - Billing Disposition and Condition Condition: STABLE Disposition: Admitted to [facility]
[2018-10-05 15:23] LABS: Hematocrit 25 % (35-47); Hemoglobin 8.2 g/dl (12.0-16.0); Mean Corpuscular HGB Conc 33 g/dl (31-36); Mean Corpuscular Hemoglobin 30 pg (27-31); Mean Corpuscular Volume 92 fL (80-97); Mean Platelet Volume 10.1 fL (7.4-10.4); Platelet Count 36 10^3/ul (150-450); Red Blood Count 2.75 10^6/ul (4.00-5.40); Red Cell Distribution Width 18 % (10.5-15); White Blood Count 1.7 10^3/ul (3.5-10.8)
[2018-10-05 15:31] LABS: Albumin 2.5 g/dL (3.2-5.2); Albumin/Globulin Ratio 1.1 (1-3); BUN/Creatinine Ratio 47.5 (8-20); Calcium 8.9 mg/dL (8.6-10.3); EGFR African American 186.3 (>60); Globulin 2.2 g/dL (2-4); Potassium 3.5 mmol/L (3.5-5.0); Total Protein 4.7 g/dL (6.4-8.9)
[2018-10-05 15:32] LABS: Troponin I 0.01 ng/mL (<0.04)
[2018-10-05 15:37] LABS: Influenza A Molecular NEGATIVE (Negative); Influenza B Molecular NEGATIVE (Negative)
[2018-10-05 15:44] LABS: INR 1.09 (0.77-1.02)
[2018-10-05 15:45] LABS: Activated Partial Thrombo Time 30.8 seconds (26.0-36.3)
[2018-10-05] MEDS ORDERED: Al Hydrox/Mg Hydrox/Simet LIQ* 30 ML UDC PO ONE (15:58)
[2018-10-05] MEDS ORDERED: Lidocaine 2% VISCOUS* 15 ML UDC PO ONE (15:58)
[2018-10-05 16:07] LABS: Immature Granulocytes 4 % (0-9); Lymphocytes % 50 %; Monocytes % 1 %; Neutrophil % 21 %; Variant Lymph % 24 % (0-6)
[2018-10-05 16:12] LABS: ABS Neutrophils 0.4 10^3/ul (1.5-7.7)
[2018-10-05] MEDS ORDERED: Fluconazole 200 MG IVPREMIX(*) 200 MG/100 ML BAG IV ONE (17:00)
[2018-10-05] MEDS ORDERED: Fluconazole 100 MG TAB* TAB PO SCH (17:00)
[2018-10-05] MEDS ORDERED: Furosemide IV* 10 MG/ML VIAL (40 MG) IV SLOW PU ONE (17:22)
[2018-10-05] MEDS ORDERED: Acetaminophen TAB* 325 MG PO PRN (17:33)
[2018-10-05 17:51] LABS: C Reactive Protein 224.72 mg/L (<8.01)
[2018-10-05 18:36] LABS: Erythrocyte Sed Rate 51 mm/Hr (0-40)
[2018-10-05] MEDS: Magic Mouth Was-BEN/MAAL/LIDO SWISH SPIT SCH (21:09)
[2018-10-06] MEDS: Levothyroxine TAB* 150 MCG TAB PO SCH ×2 (05:22→05:25)
[2018-10-06 05:54] LABS: ABS Basophils 0 10^3/ul (0-0.2); ABS Eosinophils 0 10^3/ul (0-0.6); ABS Lymphocytes 0.1 10^3/ul (1.0-4.8); ABS Monocytes 1.3 10^3/ul (0-0.8); ABS Neutrophils 0.5 10^3/ul (1.5-7.7); ABS Nucleated RBC 0 10^3/ul; Eosinophil % 0.1 %; Hematocrit 29 % (35-47); Hemoglobin 9.2 g/dl (12.0-16.0); Lymphocyte % 5.1 %; Mean Corpuscular HGB Conc 32 g/dl (31-36); Mean Corpuscular Hemoglobin 30 pg (27-31); Mean Corpuscular Volume 92 fL (80-97); Mean Platelet Volume 9.4 fL (7.4-10.4); Nucleated Red Blood Cells % 0.3; Platelet Count 36 10^3/ul (150-450); Red Cell Distribution Width 18 % (10.5-15); White Blood Count 1.9 10^3/ul (3.5-10.8)
[2018-10-06 06:14] LABS: Albumin 2.5 g/dL (3.2-5.2); BUN/Creatinine Ratio 38.9 (8-20); Calcium 9.2 mg/dL (8.6-10.3); EGFR African American 131.8 (>60); EGFR Non-African American 108.9 (>60); Globulin 2.5 g/dL (2-4); Magnesium 1.9 mg/dL (1.9-2.7); Potassium 3.3 mmol/L (3.5-5.0); Total Bilirubin 1.5 mg/dL (0.2-1.0)
[2018-10-06 07:19] LABS: Lymphocytes % 61 %; Metamyelocytes % 1 % (0-2); Monocytes % 4 %; Neutrophil % 7 %
[2018-10-06 07:20] LABS: Immature Granulocytes 12 % (0-9); Myelocytes % 2 % (0-1); Variant Lymph % 16 % (0-6)
[2018-10-06 07:21] LABS: ABS Neutrophils 0.361 10^3/ul (1.5-7.7)
[2018-10-06] MEDS: Magic Mouth Was-BEN/MAAL/LIDO SWISH SPIT SCH ×5 (08:47→20:56)
[2018-10-06] MEDS ORDERED: Furosemide IV* 10 MG/ML VIAL (40 MG) ONE (09:15)
--- NOTE | 2018-10-06 09:55 | PN ---
Progress Note - Progress Note Date of Service: 10/06/18 SOAP: Subjective: [Admitted overnight with severe thrush/mucositis and acute dyspnea following fluid infusion. Overnight O2 saturations were maintained in the mid 90s on 4L supp O2 after receiving Lasix in the ER. She had some difficulty swallowing this am and her am meds were held. She suddenly became more dyspneic and O2 saturations dropped to the high 70s with thick secretions in the oropharynx and upper airways. Oropharyngeal suctioning did not help. She was then given 40 mg IV Lasix and respiratory therapy performed deep suctioning with improvement in her dyspnea. O2 saturations improved to the high 80s. Decision made to move patient to ICU for Vapotherm.] Objective: [ Laboratory Results - last 24 hr 10/05/18 10/05/18 10/05/18 15:01 15:01 15:01 WBC 1.7 L RBC 2.75 L Hgb 8.2 L Hct 25 L MCV 92 MCH 30 MCHC 33 RDW 18 H Plt Count 36 L MPV 10.1 Neut % (Auto) Not Reportable Lymph % (Auto) Not Reportable Campbell % (Auto) Not Reportable Eos % (Auto) Not Reportable Baso % (Auto) Not Reportable Absolute Neuts (auto) Not Reportable Absolute Lymphs (auto) Not Reportable Absolute Monos (auto) Not Reportable Absolute Eos (auto) Not Reportable Absolute Basos (auto) Not Reportable Absolute Nucleated RBC Not Reportable Immature Gran % 4 Neutrophils % 21 Band Neutrophils % 4 Lymphocytes % 50 Reactive Lymphs % 24 H D Monocytes % 1 Metamyelocytes % Myelocytes % Nucleated RBC % Not Reportable Abs Neuts (Manual) 0.4 L* Abs Lymphs (Manual) 1.25 Abs Monocytes (Manual) 0.01 Normal RBC Morphology Normal ESR 51 H INR (Anticoag Therapy) 1.09 H APTT 30.8 Sodium 138 Potassium 3.5 Chloride 104 Carbon Dioxide 29 Anion Gap 5 BUN 19 Creatinine 0.40 L Est GFR ( Amer) 186.3 Est GFR (Non-Af Amer) 154.0 BUN/Creatinine Ratio 47.5 H Glucose 112 H Lactic Acid Calcium 8.9 Magnesium Total Bilirubin 1.00 AST 16 ALT 17 Alkaline Phosphatase 100 Troponin I 0.01 C-Reactive Protein 224.72 H B-Natriuretic Peptide Total Protein 4.7 L Albumin 2.5 L Globulin 2.2 Albumin/Globulin Ratio 1.1 Influenza A (Rapid) Influenza B (Rapid) 10/05/18 10/05/18 10/05/18 15:01 15:01 15:01 WBC RBC Hgb Hct MCV MCH MCHC RDW Plt Count MPV Neut % (Auto) Lymph % (Auto) Campbell % (Auto) Eos % (Auto) Baso % (Auto) Absolute Neuts (auto) Absolute Lymphs (auto) Absolute Monos (auto) Absolute Eos (auto) Absolute Basos (auto) Absolute Nucleated RBC Immature Gran % Neutrophils % Band Neutrophils % Lymphocytes % Reactive Lymphs % Monocytes % Metamyelocytes % Myelocytes % Nucleated RBC % Abs Neuts (Manual) Abs Lymphs (Manual) Abs Monocytes (Manual) Normal RBC Morphology ESR INR (Anticoag Therapy) APTT Sodium Potassium Chloride Carbon Dioxide Anion Gap BUN Creatinine Est GFR ( Amer) Est GFR (Non-Af Amer) BUN/Creatinine Ratio Glucose Lactic Acid 0.8 Calcium Magnesium Total Bilirubin AST ALT Alkaline Phosphatase Troponin I C-Reactive Protein 223.16 H B-Natriuretic Peptide 176 H Total Protein Albumin Globulin Albumin/Globulin Ratio Influenza A (Rapid) Influenza B (Rapid) 10/05/18 10/06/18 10/06/18 15:25 05:43 05:43 WBC 1.9 L RBC 3.10 L Hgb 9.2 L Hct 29 L MCV 92 MCH 30 MCHC 32 RDW 18 H Plt Count 36 L MPV 9.4 Neut % (Auto) 24.8 Lymph % (Auto) 5.1 Campbell % (Auto) 70.0 Eos % (Auto) 0.1 Baso % (Auto) 0 Absolute Neuts (auto) 0.5 L Absolute Lymphs (auto) 0.1 L Absolute Monos (auto) 1.3 H Absolute Eos (auto) 0 Absolute Basos (auto) 0 Absolute Nucleated RBC 0 Immature Gran % 12 H Neutrophils % 7 Band Neutrophils % 9 H Lymphocytes % 61 Reactive Lymphs % 16 H D Monocytes % 4 Metamyelocytes % 1 Myelocytes % 2 H Nucleated RBC % 0.3 Abs Neuts (Manual) 0.361 L Abs Lymphs (Manual) 1.46 Abs Monocytes (Manual) 0.076 Normal RBC Morphology Normal ESR INR (Anticoag Therapy) APTT Sodium 140 Potassium 3.3 L Chloride 103 Carbon Dioxide 29 Anion Gap 8 BUN 21 Creatinine 0.54 Est GFR ( Amer) 131.8 Est GFR (Non-Af Amer) 108.9 BUN/Creatinine Ratio 38.9 H Glucose 107 H Lactic Acid Calcium 9.2 Magnesium 1.9 Total Bilirubin 1.50 H AST 17 ALT 17 Alkaline Phosphatase 120 H Troponin I C-Reactive Protein B-Natriuretic Peptide Total Protein 5.0 L Albumin 2.5 L Globulin 2.5 Albumin/Globulin Ratio 1.0 Influenza A (Rapid) Negative Influenza B (Rapid) Negative 10/06/18 05:43 WBC RBC Hgb Hct MCV MCH MCHC RDW Plt Count MPV Neut % (Auto) Lymph % (Auto) Campbell % (Auto) Eos % (Auto) Baso % (Auto) Absolute Neuts (auto) Absolute Lymphs (auto) Absolute Monos (auto) Absolute Eos (auto) Absolute Basos (auto) Absolute Nucleated RBC Immature Gran % Neutrophils % Band Neutrophils % Lymphocytes % Reactive Lymphs % Monocytes % Metamyelocytes % Myelocytes % Nucleated RBC % Abs Neuts (Manual) Abs Lymphs (Manual) Abs Monocytes (Manual) Normal RBC Morphology ESR INR (Anticoag Therapy) APTT Sodium Potassium Chloride Carbon Dioxide Anion Gap BUN Creatinine Est GFR ( Amer) Est GFR (Non-Af Amer) BUN/Creatinine Ratio Glucose Lactic Acid Calcium Magnesium Total Bilirubin AST ALT Alkaline Phosphatase Troponin I C-Reactive Protein B-Natriuretic Peptide 365 H Total Protein Albumin Globulin Albumin/Globulin Ratio Influenza A (Rapid) Influenza B (Rapid) Acetaminophen (Tylenol Tab*) 650 mg PO Q4H PRN PRN Reason: PAIN Filgrastim-Sndz (Zarxio*) 480 mcg SUBCUT DAILY [facility] Cefepime HCl (Maxipime 2 Gm In Dextrose Duplex (*)) 2 gm in 50 mls @ 100 mls/ hr IV Q12H [facility] Fluconazole/Sodium Chloride (Diflucan 200 Mg Ivpremix(*)) 200 mg in 100 mls @ 100 mls/hr IVPB Q24H [facility] Levothyroxine Sodium (Synthroid Tab*) 150 mcg PO DAILY@0600 [facility] Last Admin: 10/06/18 05:25 Dose: Not Given Multi-Ingredient Mouthwash/Gargle (Magic Mouth Was-Dom/Maal/Lido*) 10 ml SWISH SPIT QID [facility] Vital Signs: Temp Pulse Resp BP Pulse Ox 101.5 F 114 33 124/67 86 10/06/18 09:56 10/06/18 10:00 10/06/18 10:00 10/06/18 10:00 10/06/18 10:00 Exam: Gen: 77 yo female in mild respiratory distress HEENT: mildly dry MM, moderate mucositis CV: tachycardic Resp: diffuse rhonchi and occasional wheeze Abd: soft, nonTTP Ext: 1-2+ LE edema] Assessment: [77 yo female with marginal zone lymphoma recently treated with 3 of 4 planned weekly Rituximab treatments. She was admitted with mod/severe mucositis likely due to thrush and evidence of fluid overload. She became acutely hypoxic this am and having difficulty clearing secretions and has now developed a fever with pancytopenia. Transferred to ICU. Plan: [1. Neutropenic fever - unclear exactly why she has such significant cytopenias, it may be that her marrow that was previously infiltrated with her lymphoma has been cleared of her lymphoma and is slow to resume normal hematopoesis or this may be a different process all together - if counts do not recover over the next couple of days will plan to repeat bone marrow biopsy on Tuesday - questionable LLL infiltrate - start Neupogen - start Cefepime - collect blood/urine cultures 2. Hypoxia - likely due to thick secretions causing a mucus plug - some improvement with deep suctioning - trial Vapotherm and metanebs to mobilize secretions 3. LE edema - mildly elevated BNP - may have some mild CHF, no evidence of severe fluid overload at this time - echo pending 4. Marginal zone lymphoma - s/p 3 of 4 weekly rituximab treatments 5. Thrush/mucositis - treat with IV fluconazole and magic mouth wash Dispo: requires ICU level care
[2018-10-06] MEDS: FILGRASTIM-SNDZ* 480 MCG/0.8 ML SYRINGE SUBCUT SCH (10:16)
[2018-10-06] MEDS: Cefepime 2 GM in Dextrose(*) 2 GM/50 ML BAG IV SCH ×2 (10:19→22:58)
[2018-10-06] MEDS ORDERED: methylPREDNISolone 125 MG* 2 ML VIAL IV ONE (10:55)
[2018-10-06] MEDS ORDERED: Morphine VIAL* 4 MG/ML VIAL (1 ml vial) ONE (12:29)
[2018-10-06] MEDS: Morphine VIAL* 4 MG/ML VIAL (1 ml vial) IV PRN (12:32)
[2018-10-06] MEDS: KCL 10 MEQ/50 ML IVPREMIX* 10 MEQ/50 ML BAG IV SCH ×3 (12:47→15:28)
[2018-10-06 13:13] LABS: Corrected Retic Count 0.9 % (0.5-1.5); Hematocrit for Retic CNT 27 % (35-47); Immature Retic Fraction 0.52; RBC Retic Count 2.93 10^6/ul (4.6-6.2)
[2018-10-06 14:15] LABS: LDH < 25 U/L (140-271); Total Iron Binding Capacity 105 mcg/dL (250-450); Transferrin < 75 mg/dL (203-362)
[2018-10-06 14:26] LABS: Ferritin 1088.1 ng/mL (11-307)
[2018-10-06 14:32] LABS: % Iron Saturation 16 % (15-55); Iron < 17 ug/dL (50-212)
[2018-10-06] MEDS: Fluconazole 200 MG IVPREMIX(*) 200 MG/100 ML BAG IVPB SCH (16:59)
[2018-10-06] MEDS ORDERED: Fluconazole 200 MG IVPREMIX(*) 200 MG/100 ML BAG IVPB SCH (17:00)
--- NOTE | 2018-10-06 17:58 | CONSULT ---
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 Noted to have worsening oral thrush and increased. She came in dyspneic, placed on 2 L NC. Cough+. Oral pain on swallowing/odynophadia+. in ER, sats 78%, increased fio2 to 6L. Tmax 99.7, tachypneic. BP stable. Was initially given IVF, started on IV abx for thrush and neutropenic fever. Overnight more hypoxic, started on hiflow, then went onto hiflow for increasing requirements. She is febrile still low grade 100.8, tachycardic, sats low 90s on 11/02 100% NIV, BP 90-100s. Awake, mild-mod resp distress. Moving all ext, able to follow commands. Overall cachetic appearing. ROS: negative except for pertinent positives mentioned above. 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 PSHx: none Family History: none Social History: Alcohol-none, Smoking-daily, Drug use-none Allergies: Allergies Allergy/AdvReac Type Severity Reaction Status Date / Time No Known Allergies Allergy Verified 10/05/18 14:16 Home Medications: Multivitamin with Minerals [One Daily Complete] 1 each PO DAILY 09/10/18 [ History Confirmed 10/05/18] Acetaminophen TAB* [Tylenol TAB*] 650 mg PO Q4H PRN 10/05/18 [History Confirmed 10/05/18] Lactose-Reduced Food [Ensure Liquid] 237 ml PO ACHS 10/05/18 [History Confirmed 10/05/18] Levothyroxine TAB* [Synthroid TAB*] 150 mcg PO DAILY 10/05/18 [History Confirmed 10/05/18] Tele: sinus tachy Vitals: Vital Signs Temp 100.8 F 10/06/18 17:34 Pulse 74 10/06/18 18:01 Resp 30 10/06/18 18:01 BP 101/60 10/06/18 18:00 Pulse Ox 92 10/06/18 18:01 Intake & Output 0210/06/18 10/06/18 18:59 06:59 18:59 Intake Total 1100 61 Output Total 450 Balance 650 61 Weight 64.864 kg 63.276 kg Intake: IV Fluids 1100 11 KVO 11 IVPB 50 KCL 50 Oral 0 Output: Urine 450 Other: Estimated Void Large Large # Voids 4 1 O2/Vent: NIV 80% Infusions: heplock Current Medications: Acetaminophen (Tylenol Tab*) 650 mg PO Q4H PRN PRN Reason: PAIN Filgrastim-Sndz (Zarxio*) 480 mcg SUBCUT DAILY [facility] Last Admin: 10/06/18 10:16 Dose: 480 mcg Cefepime HCl (Maxipime 2 Gm In Dextrose Duplex (*)) 2 gm in 50 mls @ 100 mls/ hr IV Q12H [facility] Last Admin: 10/06/18 10:19 Dose: 100 mls/hr Fluconazole/Sodium Chloride (Diflucan 200 Mg Ivpremix(*)) 200 mg in 100 mls @ 100 mls/hr IVPB Q24H [facility] Last Admin: 10/06/18 16:59 Dose: 100 mls/hr Methylprednisolone Sodium Succinate (Solu-Medrol 125mg *) 125 mg IV DAILY [facility] Morphine Sulfate (Morphine Vial*) 2 mg IV Q2H PRN PRN Reason: Pain/dyspnea Last Admin: 10/06/18 12:32 Dose: 2 mg Multi-Ingredient Mouthwash/Gargle (Magic Mouth Was-Dom/Maal/Lido*) 10 ml SWISH SPIT QID [facility] Last Admin: 10/06/18 17:23 Dose: 10 ml Physical Exam: General: awake, alert, resp distress+, no diaphoresis Head: normocephalic, atraumatic HEENT: no pallor, no icterus, moist mucous membranes Neck: soft, supple, no jvd, no stridor CVS: tachy, regular, no murmur Resp: bilateral air entry, no rhales, mild scattere wheeze+, mild rhonchi+, some acc muscle use+ Abdomen: soft, nontender, nondistended, bowel sounds + Ext: pulses+, warm, no edema Skin: intact Neuro: awake, alert, orientedx2, moving all extremities Labs: Laboratory Results - last 24 hr 10/05/18 10/06/18 10/06/18 15:01 05:43 05:43 WBC 1.9 L RBC 3.10 L RBC (Retic) Hgb 9.2 L Hct 29 L HCT (Retic) MCV 92 MCH 30 MCHC 32 RDW 18 H Plt Count 36 L MPV 9.4 Neut % (Auto) 24.8 Lymph % (Auto) 5.1 Faulk % (Auto) 70.0 Eos % (Auto) 0.1 Baso % (Auto) 0 Absolute Neuts (auto) 0.5 L Absolute Lymphs (auto) 0.1 L Absolute Monos (auto) 1.3 H Absolute Eos (auto) 0 Absolute Basos (auto) 0 Absolute Nucleated RBC 0 Immature Gran % 12 H Neutrophils % 7 Band Neutrophils % 9 H Lymphocytes % 61 Reactive Lymphs % 16 H D Monocytes % 4 Metamyelocytes % 1 Myelocytes % 2 H Nucleated RBC % 0.3 Abs Neuts (Manual) 0.361 L Abs Lymphs (Manual) 1.46 Abs Monocytes (Manual) 0.076 Normal RBC Morphology Normal Retic Count, Calc Corrected Retic Count Retic Shift Factor Retic Production Index Immature Retic Fraction Mean Retic Volume Hem Pathologist Commnt Sodium 140 Potassium 3.3 L Chloride 103 Carbon Dioxide 29 Anion Gap 8 BUN 21 Creatinine 0.54 Est GFR ( Amer) 131.8 Est GFR (Non-Af Amer) 108.9 BUN/Creatinine Ratio 38.9 H Glucose 107 H Calcium 9.2 Magnesium 1.9 Iron TIBC % Saturation Unsat Iron Binding Transferrin Ferritin Total Bilirubin 1.50 H AST 17 ALT 17 Alkaline Phosphatase 120 H Lactate Dehydrogenase B-Natriuretic Peptide Total Protein 5.0 L Albumin 2.5 L Globulin 2.5 Albumin/Globulin Ratio 1.0 Vitamin B12 10/06/18 10/06/18 10/06/18 05:43 12:53 12:53 WBC RBC RBC (Retic) 2.93 L Hgb Hct HCT (Retic) 27 L MCV MCH MCHC RDW Plt Count MPV Neut % (Auto) Lymph % (Auto) Faulk % (Auto) Eos % (Auto) Baso % (Auto) Absolute Neuts (auto) Absolute Lymphs (auto) Absolute Monos (auto) Absolute Eos (auto) Absolute Basos (auto) Absolute Nucleated RBC Immature Gran % Neutrophils % Band Neutrophils % Lymphocytes % Reactive Lymphs % Monocytes % Metamyelocytes % Myelocytes % Nucleated RBC % Abs Neuts (Manual) Abs Lymphs (Manual) Abs Monocytes (Manual) Normal RBC Morphology Retic Count, Calc 1.5 Corrected Retic Count 0.9 Retic Shift Factor 2.0 Retic Production Index 0.50 Immature Retic Fraction 0.52 Mean Retic Volume 116.9 Hem Pathologist Commnt Sodium Potassium Chloride Carbon Dioxide Anion Gap BUN Creatinine Est GFR ( Amer) Est GFR (Non-Af Amer) BUN/Creatinine Ratio Glucose Calcium Magnesium Iron < 17 L TIBC 105 L % Saturation 16 Unsat Iron Binding < 90 Transferrin < 75 L Ferritin 1088.1 H Total Bilirubin AST ALT Alkaline Phosphatase Lactate Dehydrogenase < 25 L B-Natriuretic Peptide 365 H Total Protein Albumin Globulin Albumin/Globulin Ratio Vitamin B12 > 1450 H Imaging: cxr 10/05 and cxr 10/06 - noted some left lower lobe infiltrate, worsened RLL consolidation+ vs atelectasis; mild congestion+ Assessment: 77y F w/pmhx of hypothyroidism, HTN, COPD, 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 Noted to have worsening oral thrush and increased. She came in dyspneic, placed on 2 L NC. Cough+. Oral pain on swallowing/odynophadia+. in ER, sats 78%, increased fio2 to 6L. Tmax 99.7, tachypneic. BP stable. Was initially given IVF, started on IV abx for thrush and neutropenic fever. Overnight more hypoxic, started on hiflow, then went onto hiflow for increasing requirements. She is febrile still low grade 100.8, tachycardic, sats low 90s on 11/02 100% NIV, BP 90-100s. Awake, mild-mod resp distress. Moving all ext, able to follow commands. Overall cachetic appearing. -Acute Hypoxic Respiratory failure -Suspected bibasilar pneumonia -Marisa oral thrush and esophagitis suspected -Severe Neutropenic Sepsis -Pancytopenia with Neutropenia -Marginal cell Lymphoma Plan: Neuro- delirium noted. suspect metabolic. asp prec. avoid bdz. delirium prec. CVS- severe sepsis, in setting of neutropenia, likley from pneumonia -BP labile, 90-100s; may require addition of pressor, additional IVF bolus will be given; hold diuretics -IV abx -DNR/DNI Resp-Hypoxic, sats low 90s on 100% NIV; some acc muscle use. Noted to be DNR/DNI -will increase PS or Peep as much as possible; currently awake and able to maintain airway patency. Overall poor prognosis given high requirements, not much room for further support given DNI. -CXR with basilar consolidation more so than congestion; some Right basal atelectasis? -bacteria? fungal etiology of resp distress? -IV abx -scattered wheeze+; cont solumedrol, dec to 40mg IV BID -Bronchodilators PRN, Asp prec ID- febrile, neutropenic+. Marginal cell Lymphoma, on Rituxan. -Marisa mucositis, suspect esophagitis given difficulty swallowing. agree to cont fluconazole 200mg IV daily (day#2). -Given neutropenia, agree to cover HCAP organisms; cont Cefepime (day#1) -sputum culture if able GI- NPO on NIV. Asp Prec. Renal- Cr okay. K 3.3, dose 40meq IV KCL. No acidosis. Monitor urine output. Heme- pancytopenic, neutropenic+. s/p ramón-grastim given. No plan for transfusion of prbc or plt. Neutropenic prec. -Marginal cell lymphoma; s/p 3/4 Rituxan Tx given. Endo- fingerstick prn. cont synthroid if able to take po. Musculsk- pressure ulcer prophylaxis. Bedrest. Wounds- none Nutrition- NPO on NIV DVT prophylaxis: SCDs, no chemical proph 2/2 to thrombocytopenia GI prophylaxis: - Central Line: - Arterial Line: - Downing Cathetor: - Disposition: Patient requires Critical Care/ICU for respiratory failure, severe sepsis Patient Clinical Status: unstable, critical Code Status: DNR/DNI Total Critical Care time is 45 minutes, excluding procedures/teaching Mateusz Hsieh MD Power Lineworker (Electronically Signed)
--- NOTE | 2018-10-06 17:58 | ECHO ---
Patient: HEYDI CARDONA [facility] Rec#: [id number] : 1940 Date: 10/06/2018 Age: 77y Height: 165 cm / 65.0 in Weight: 65 kg / 143.3 lbs Sex: F BSA: 1.72 Room#: [facility] Admit Date#: 10/05/2018 Type: Inpatient Referring: Tabatha Santo Reading: Mohinder Ortiz MD Rag Sorter And Cutter: Marilu Watkins RDCS CC: Job Osullivan MD Transthoracic Echocardiogram Indication: Hypoxia//SOB BP: 125/82 HR: 115 Rhythm: Tachycardia Findings History: Lymphoma with recent chemo, thrush infection,hypothyroid,HTN,emphysema. Technical Comments: The study is technically limited due to patient being on BIPAP during study. Completed at 1730. Left Ventricle: The left ventricular chamber size is normal. Mild concentric left ventricular hypertrophy is observed. There is global hypokinesis of the left ventricle with minor regional variation. There is moderately decreased left ventricular systolic function. The estimated ejection fraction is 35-40%. Abnormal left ventricular diastolic function is observed. Left Atrium: The left atrial chamber size is normal. Right Ventricle: The right ventricular cavity size is normal. The right ventricular global systolic function is normal. Right Atrium: The right atrium is mild to moderately dilated. Aortic Valve: The aortic valve is trileaflet. There is no evidence of aortic regurgitation. There is no evidence of aortic stenosis. Mitral Valve: The mitral valve leaflets are mildly thickened. There is trace to mild mitral regurgitation. Tricuspid Valve: The tricuspid valve leaflets are normal. There is trace tricuspid regurgitation. Unable to estimate the right ventricular systolic pressure. Pulmonic Valve: The pulmonic valve appears normal. There is no evidence of pulmonic regurgitation. There is no pulmonic stenosis. Pericardium: There is no pericardial effusion. A left pleural effusion is present. There is a moderate pleural effusion. Aorta: There is no dilatation of the ascending aorta. The aortic arch is not well visualized. There is no dilation of the aortic root. Pulmonary Artery: The main pulmonary artery is not well visualized. Venous: The inferior vena cava appears normal in size. There is a greater than 50% respiratory change in the inferior vena cava dimension. Conclusions There is moderately decreased left ventricular systolic function. The estimated ejection fraction is 35-40%. There is global hypokinesis of the left ventricle with minor regional variation. The left ventricular chamber size is normal. Mild concentric left ventricular hypertrophy is observed. Abnormal left ventricular diastolic function is observed. The right atrium is mild to moderately dilated. Functionally benign heart valves. There is at least a moderate sized left pleural effusion. There is no prior echocardiogram available to compare with at this time. Measurements Name Value Normal Range RVIDd (AP) 2D 2.4 cm (0.9 - 2.6) RVDdMajor (2D) 3 cm (2.2 - 4.4) RAd ISD 4CH 5.4 cm (3.4 - 4.9) RA (A4C)W 3.7 cm (2.9 - 4.6) IVSd (2D) 1.2 cm (0.6 - 1) LVPWd (2D) 1.3 cm (0.6 - 1) LVIDd (2D) 3.8 cm (3.6 - 5.4) LVIDs (2D) 3.5 cm - LV FS (2D) 8 % (25 - 45) Aortic Annulus 2.2 cm (1.4 - 2.6) Ao root diameter (2D) 3.1 cm (2.1 - 3.5) Ascending Ao 2.9 cm (2.1 - 3.4) LA dimension (AP) 2D 3.3 cm (2.3 - 3.8) LAd ISD 4CH 4 cm (2.9 - 5.3) LA ISD 4CH W 6 cm (2.5 - 4.5) Name Value Normal Range LA ESV SP 4CH (A/L) 10 ml - LA ESV SP 2CH (A/L) 22 ml - LA ESV BP (A/L) index 16 ml/m2 - Name Value Normal Range MV E-wave Vmax 0.6 m/sec - MV deceleration time 151 msec - MV A-wave Vmax 1 m/sec - MV E:A ratio 0.7 ratio - LV septal e' Vmax 0.1 m/sec - LV lateral e' Vmax 0.16 m/sec - LV E:e' septal ratio 6 ratio - LV E:e' lateral ratio 3.75 ratio - Name Value Normal Range AV Vmax 1.8 m/sec - AV VTI 35 cm - AV peak gradient 13 mmHg - AV mean gradient 7 mmHg - LVOT Vmax 1.2 m/sec - LVOT VTI 28.2 cm - LVOT peak gradient 6 mmHg - LVOT mean gradient 3 mmHg - Name Value Normal Range TR peak gradient 26 mmHg - RAP 3 mmHg - IVC diameter 1.8 cm - Name Value Normal Range PV Vmax 1 m/sec - PV peak gradient 4 mmHg -
[2018-10-06] MEDS: KCL 20 MEQ/100 ML IVPREMIX* 20 MEQ/100 ML BAG IV SCH ×2 (20:37→23:40)
[2018-10-06] MEDS: methylPREDNISolone SOD 40 MG* 1 ML VIAL IV SCH (20:38)
[2018-10-06] MEDS: Albuterol/Ipratropium NEB.SOL* Albuterol 2.5 MG/Ipratropium 0.5 MG 3 ML INH SCH (21:08)
[2018-10-07] MEDS: Albuterol/Ipratropium NEB.SOL* Albuterol 2.5 MG/Ipratropium 0.5 MG 3 ML INH SCH ×6 (01:37→20:50)
[2018-10-07] MEDS: methylPREDNISolone SOD 40 MG* 1 ML VIAL IV SCH ×3 (04:16→20:07)
[2018-10-07 06:04] LABS: Hematocrit 25 % (35-47); Hemoglobin 8.2 g/dl (12.0-16.0); Mean Corpuscular HGB Conc 32 g/dl (31-36); Mean Corpuscular Hemoglobin 30 pg (27-31); Mean Corpuscular Volume 93 fL (80-97); Mean Platelet Volume 10.9 fL (7.4-10.4); Platelet Count 26 10^3/ul (150-450); Red Blood Count 2.73 10^6/ul (4.00-5.40); Red Cell Distribution Width 18 % (10.5-15); White Blood Count 2.5 10^3/ul (3.5-10.8)
[2018-10-07 06:14] LABS: Albumin 2.2 g/dL (3.2-5.2); BUN/Creatinine Ratio 50.8 (8-20); Calcium 9.2 mg/dL (8.6-10.3); EGFR Non-African American 98.3 (>60); Globulin 2.3 g/dL (2-4); Potassium 3.9 mmol/L (3.5-5.0); Total Bilirubin 2.3 mg/dL (0.2-1.0); Total Protein 4.5 g/dL (6.4-8.9)
[2018-10-07 06:33] LABS: ABS Basophils 0 10^3/ul (0-0.2); ABS Eosinophils 0 10^3/ul (0-0.6); ABS Lymphocytes 0.1 10^3/ul (1.0-4.8); ABS Monocytes 2.1 10^3/ul (0-0.8); ABS Neutrophils 0.3 10^3/ul (1.5-7.7); ABS Nucleated RBC 0 10^3/ul
[2018-10-07 06:37] LABS: Immature Granulocytes 6 % (0-9); Lymphocytes % 64 %; Metamyelocytes % 1 % (0-2); Myelocytes % 3 % (0-1); Neutrophil % 1 %; Variant Lymph % 29 % (0-6)
[2018-10-07 06:38] LABS: ABS Neutrophils 0.2 10^3/ul (1.5-7.7)
[2018-10-07] MEDS ORDERED: NS 0.9% 500 ML* 500 ML IV ONE (08:56)
[2018-10-07] MEDS ORDERED: methylPREDNISolone 125 MG* 2 ML VIAL IV SCH (09:00)
[2018-10-07] MEDS ORDERED: Amiodarone 150 MG IVPREMIX* 150 MG/100 ML BAG IV ONE ×2 (09:01→09:02)
[2018-10-07] MEDS ORDERED: Metoprolol Tartrate IV* 1 MG/ML 5 ML VIAL IV ONE (09:07)
[2018-10-07] MEDS ORDERED: Metoprolol Tartrate IV* 1 MG/ML 5 ML VIAL ONE (09:09)
--- NOTE | 2018-10-07 09:10 | PN ---
Progress Note - Progress Note Date of Service: 10/07/18 SOAP: Subjective: just went into afib w RVR. feels "ok" denies pain. reports that breathing is better Objective: Vital Signs Temp Pulse Resp BP Pulse Ox 98.7 F 107 24 106/69 99 10/07/18 04:00 10/07/18 08:01 10/07/18 08:01 10/07/18 08:00 10/07/18 08:01 HR 160 BP 96/57 RR:28 Ox 97% on vapotherm ill appearing severe mucositis, dry OP relatively clear tachy soft nt no clear splenomegaly 1+ LE edema slow to answer but oriented and grossly nonfocal Laboratory Results - last 24 hr 10/05/18 10/06/18 10/06/18 15:01 05:43 12:53 WBC RBC RBC (Retic) Hgb Hct HCT (Retic) MCV MCH MCHC RDW Plt Count MPV Neut % (Auto) Lymph % (Auto) Falls % (Auto) Eos % (Auto) Baso % (Auto) Absolute Neuts (auto) Absolute Lymphs (auto) Absolute Monos (auto) Absolute Eos (auto) Absolute Basos (auto) Absolute Nucleated RBC Immature Gran % Neutrophils % Band Neutrophils % Lymphocytes % Reactive Lymphs % Metamyelocytes % Myelocytes % Nucleated RBC % Abs Neuts (Manual) Abs Lymphs (Manual) Normal RBC Morphology Anisocytosis Retic Count, Calc Corrected Retic Count Retic Shift Factor Retic Production Index Immature Retic Fraction Mean Retic Volume Hem Pathologist Commnt Sodium Potassium Chloride Carbon Dioxide Anion Gap BUN Creatinine Est GFR ( Amer) Est GFR (Non-Af Amer) BUN/Creatinine Ratio Glucose Calcium Iron < 17 L TIBC 105 L % Saturation 16 Unsat Iron Binding < 90 Transferrin < 75 L Ferritin 1088.1 H Total Bilirubin AST ALT Alkaline Phosphatase Lactate Dehydrogenase < 25 L Total Protein Albumin Globulin Albumin/Globulin Ratio Vitamin B12 > 1450 H 10/06/18 10/07/18 10/07/18 12:53 05:33 05:33 WBC 2.5 L RBC 2.73 L RBC (Retic) 2.93 L Hgb 8.2 L Hct 25 L HCT (Retic) 27 L MCV 93 MCH 30 MCHC 32 RDW 18 H Plt Count 26 L MPV 10.9 H Neut % (Auto) Not Reportable Lymph % (Auto) Not Reportable Falls % (Auto) Not Reportable Eos % (Auto) Not Reportable Baso % (Auto) Not Reportable Absolute Neuts (auto) 0.3 L Absolute Lymphs (auto) 0.1 L Absolute Monos (auto) 2.1 H Absolute Eos (auto) 0 Absolute Basos (auto) 0 Absolute Nucleated RBC 0 Immature Gran % 6 Neutrophils % 1 Band Neutrophils % 2 Lymphocytes % 64 Reactive Lymphs % 29 H D Metamyelocytes % 1 Myelocytes % 3 H Nucleated RBC % Not Reportable Abs Neuts (Manual) 0.2 L Abs Lymphs (Manual) 2.3 Normal RBC Morphology Not Reportable Anisocytosis 1+ Retic Count, Calc 1.5 Corrected Retic Count 0.9 Retic Shift Factor 2.0 Retic Production Index 0.50 Immature Retic Fraction 0.52 Mean Retic Volume 116.9 Hem Pathologist Commnt Sodium 143 Potassium 3.9 Chloride 108 Carbon Dioxide 28 Anion Gap 7 BUN 30 H Creatinine 0.59 Est GFR ( Amer) 119.0 Est GFR (Non-Af Amer) 98.3 BUN/Creatinine Ratio 50.8 H Glucose 110 H Calcium 9.2 Iron TIBC % Saturation Unsat Iron Binding Transferrin Ferritin Total Bilirubin 2.30 H AST 18 ALT 13 Alkaline Phosphatase 90 Lactate Dehydrogenase Total Protein 4.5 L Albumin 2.2 L Globulin 2.3 Albumin/Globulin Ratio 1.0 Vitamin B12 Acetaminophen (Tylenol Tab*) 650 mg PO Q4H PRN PRN Reason: PAIN Albuterol/Ipratropium (Duoneb (Albuterol 2.5 Mg/Ipratropium 0.5 Mg)) 1 neb INH Q4H [facility] Last Admin: 10/07/18 05:08 Dose: 1 neb Filgrastim-Sndz (Zarxio*) 480 mcg SUBCUT DAILY [facility] Last Admin: 10/06/18 10:16 Dose: 480 mcg Cefepime HCl (Maxipime 2 Gm In Dextrose Duplex (*)) 2 gm in 50 mls @ 100 mls/ hr IV Q12H [facility] Last Admin: 10/06/18 22:58 Dose: 100 mls/hr Fluconazole/Sodium Chloride (Diflucan 200 Mg Ivpremix(*)) 200 mg in 100 mls @ 100 mls/hr IVPB Q24H [facility] Last Admin: 10/06/18 16:59 Dose: 100 mls/hr Sodium Chloride (Ns 0.9% 500 Ml*) 500 mls @ 1,000 mls/hr IV ONCE ONE Stop: 10/07/18 09:25 Amiodarone HCl (Nexterone Drip*) 150 mg in 100 mls @ 600 mls/hr IV ONCE ONE Stop: 10/07/18 09:11 Methylprednisolone Sodium Succinate (Solu-Medrol 40 Mg) 40 mg IV Q8H [facility] Last Admin: 10/07/18 04:16 Dose: 40 mg Morphine Sulfate (Morphine Vial*) 2 mg IV Q2H PRN PRN Reason: Pain/dyspnea Last Admin: 10/06/18 12:32 Dose: 2 mg Multi-Ingredient Mouthwash/Gargle (Magic Mouth Was-Dom/Maal/Lido*) 10 ml SWISH SPIT QID [facility] Last Admin: 10/06/18 20:56 Dose: 10 ml Assessment: 77 yo female with marginal zone lymphoma on single agent rituxan with severe pancytopenia, fevers, and respiratory distress, now in afib w RVR. Plan: 1. Neutropenic fever - unclear exactly why she has such significant cytopenias, it may be that her marrow that was previously infiltrated with her lymphoma has been cleared of her lymphoma and is slow to resume normal hematopoesis or this may be a different process all together - if counts do not recover over the next couple of days will plan to repeat bone marrow biopsy on Tuesday - questionable LLL infiltrate - cont Neupogen - cont Cefepime - collect blood/urine cultures 2. Hypoxia - likely due to thick secretions causing a mucus plug - trial Vapotherm and metanebs to mobilize secretions -no intubation 3. afib w RVR: likely related to respiratory distress. BP limiting Tx options, will defer to CCM management -getting NS bolus 4. Marginal zone lymphoma - s/p 3 of 4 weekly rituximab treatments 5. Thrush/mucositis - treat with IV fluconazole and magic mouth wash DNR/DNI, but aggressive measures up to that
[2018-10-07] MEDS: Magic Mouth Was-BEN/MAAL/LIDO SWISH SPIT SCH ×4 (09:17→20:07)
[2018-10-07] MEDS: Cefepime 2 GM in Dextrose(*) 2 GM/50 ML BAG IV SCH ×2 (09:21→22:40)
[2018-10-07] MEDS: Metoprolol Tartrate IV* 1 MG/ML 5 ML VIAL IV ONE ×2 (09:33→10:02)
[2018-10-07] MEDS: FILGRASTIM-SNDZ* 480 MCG/0.8 ML SYRINGE SUBCUT SCH (10:35)
[2018-10-07] MEDS ORDERED: Amiodarone 360 MG IVPREMIX* 360 MG/200 ML BAG IV ONE (10:54)
[2018-10-07] MEDS ORDERED: NS 0.45% 1000 ML BAG* 1,000 ML IV SCH ×2 (11:00→13:43)
--- NOTE | 2018-10-07 11:01 | PN ---
Progress Note - Progress Note Date of Service: 10/07/18 Note: Progress Note -- Critical Care 24 hour events -upgraded to ICU yesterday -transitioned to hiflow yesterday evening -overnight did well on hiflow -this morning Afib with RVR; given amio bolus and NS bolus for hypotension; she is awake, alert, no distress noted -mild response to metoprolol IV x1 2.5mg -Dr Faulkner at bedside Tele: afib rvr Vitals: Vital Signs Temp 99.9 F 10/07/18 08:00 Pulse 113 10/07/18 09:32 Resp 29 10/07/18 09:32 BP 89/57 10/07/18 09:32 Pulse Ox 98 10/07/18 09:32 Intake & Output 10/06/18 10/07/18 10/07/18 18:59 06:59 18:59 Intake Total 61 200 0 Balance 61 200 0 Weight 61.507 kg Intake: IV Fluids 11 KVO 11 IVPB 50 200 ABX - CEFEPIME 50 KCL 50 150 Oral 0 0 Other: Estimated Void Large Large # Voids 1 1 O2/Vent: hiflow 100% 40lpm Infusions: heplock Current Medications: Acetaminophen (Tylenol Tab*) 650 mg PO Q4H PRN PRN Reason: PAIN Albuterol/Ipratropium (Duoneb (Albuterol 2.5 Mg/Ipratropium 0.5 Mg)) 1 neb INH Q4H [facility] Last Admin: 10/07/18 09:48 Dose: Not Given Filgrastim-Sndz (Zarxio*) 480 mcg SUBCUT DAILY [facility] Last Admin: 10/07/18 10:35 Dose: 480 mcg Cefepime HCl (Maxipime 2 Gm In Dextrose Duplex (*)) 2 gm in 50 mls @ 100 mls/ hr IV Q12H [facility] Last Admin: 10/07/18 09:21 Dose: 100 mls/hr Fluconazole/Sodium Chloride (Diflucan 200 Mg Ivpremix(*)) 200 mg in 100 mls @ 100 mls/hr IVPB Q24H [facility] Last Admin: 10/06/18 16:59 Dose: 100 mls/hr Sodium Chloride (Ns 0.45% 1000 Ml Bag*) 1,000 mls @ 60 mls/hr IV PER RATE [facility] Amiodarone HCl (Nexterone 360 Mg/200 Ml Ivpremix*) 360 mg in 200 mls @ 33.333 mls/hr IV ONCE ONE Stop: 10/07/18 16:53 Methylprednisolone Sodium Succinate (Solu-Medrol 40 Mg) 40 mg IV Q8H [facility] Last Admin: 10/07/18 10:38 Dose: 40 mg Morphine Sulfate (Morphine Vial*) 2 mg IV Q2H PRN PRN Reason: Pain/dyspnea Last Admin: 10/06/18 12:32 Dose: 2 mg Multi-Ingredient Mouthwash/Gargle (Magic Mouth Was-Dom/Maal/Lido*) 10 ml SWISH SPIT QID [facility] Last Admin: 10/07/18 09:17 Dose: 10 ml Physical Exam: General: awake, alert, resp distress+ mild, no diaphoresis Head: normocephalic, atraumatic HEENT: no pallor, no icterus, moist mucous membranes Neck: soft, supple, no jvd, no stridor CVS: tachy, regular, no murmur Resp: bilateral air entry, no rhales, no further wheeze, no rhonchi, no acc muscle use Abdomen: soft, nontender, nondistended, bowel sounds + Ext: pulses+, warm, no edema Skin: intact Neuro: awake, alert, orientedx2, moving all extremities Labs: Laboratory Results - last 24 hr 10/06/18 10/06/18 10/07/18 12:53 12:53 05:33 WBC 2.5 L RBC 2.73 L RBC (Retic) 2.93 L Hgb 8.2 L Hct 25 L HCT (Retic) 27 L MCV 93 MCH 30 MCHC 32 RDW 18 H Plt Count 26 L MPV 10.9 H Neut % (Auto) Not Reportable Lymph % (Auto) Not Reportable [place] % (Auto) Not Reportable Eos % (Auto) Not Reportable Baso % (Auto) Not Reportable Absolute Neuts (auto) 0.3 L Absolute Lymphs (auto) 0.1 L Absolute Monos (auto) 2.1 H Absolute Eos (auto) 0 Absolute Basos (auto) 0 Absolute Nucleated RBC 0 Immature Gran % 6 Neutrophils % 1 Band Neutrophils % 2 Lymphocytes % 64 Reactive Lymphs % 29 H D Metamyelocytes % 1 Myelocytes % 3 H Nucleated RBC % Not Reportable Abs Neuts (Manual) 0.2 L Abs Lymphs (Manual) 2.3 Normal RBC Morphology Not Reportable Anisocytosis 1+ Retic Count, Calc 1.5 Corrected Retic Count 0.9 Retic Shift Factor 2.0 Retic Production Index 0.50 Immature Retic Fraction 0.52 Mean Retic Volume 116.9 Sodium Potassium Chloride Carbon Dioxide Anion Gap BUN Creatinine Est GFR ( Amer) Est GFR (Non-Af Amer) BUN/Creatinine Ratio Glucose Calcium Iron < 17 L TIBC 105 L % Saturation 16 Unsat Iron Binding < 90 Transferrin < 75 L Ferritin 1088.1 H Total Bilirubin AST ALT Alkaline Phosphatase Lactate Dehydrogenase < 25 L Total Protein Albumin Globulin Albumin/Globulin Ratio Vitamin B12 > 1450 H 10/07/18 05:33 WBC RBC RBC (Retic) Hgb Hct HCT (Retic) MCV MCH MCHC RDW Plt Count MPV Neut % (Auto) Lymph % (Auto) [place] % (Auto) Eos % (Auto) Baso % (Auto) Absolute Neuts (auto) Absolute Lymphs (auto) Absolute Monos (auto) Absolute Eos (auto) Absolute Basos (auto) Absolute Nucleated RBC Immature Gran % Neutrophils % Band Neutrophils % Lymphocytes % Reactive Lymphs % Metamyelocytes % Myelocytes % Nucleated RBC % Abs Neuts (Manual) Abs Lymphs (Manual) Normal RBC Morphology Anisocytosis Retic Count, Calc Corrected Retic Count Retic Shift Factor Retic Production Index Immature Retic Fraction Mean Retic Volume Sodium 143 Potassium 3.9 Chloride 108 Carbon Dioxide 28 Anion Gap 7 BUN 30 H Creatinine 0.59 Est GFR ( Amer) 119.0 Est GFR (Non-Af Amer) 98.3 BUN/Creatinine Ratio 50.8 H Glucose 110 H Calcium 9.2 Iron TIBC % Saturation Unsat Iron Binding Transferrin Ferritin Total Bilirubin 2.30 H AST 18 ALT 13 Alkaline Phosphatase 90 Lactate Dehydrogenase Total Protein 4.5 L Albumin 2.2 L Globulin 2.3 Albumin/Globulin Ratio 1.0 Vitamin B12 Imaging: cxr 10/05 and cxr 10/06 - noted some left lower lobe infiltrate, worsened RLL consolidation+ vs atelectasis; mild congestion+ Assessment: 77y F w/pmhx of hypothyroidism, HTN, COPD, 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 Noted to have worsening oral thrush and increased. She came in dyspneic, placed on 2 L NC. Cough+. Oral pain on swallowing/odynophadia+. in ER, sats 78%, increased fio2 to 6L. Tmax 99.7, tachypneic. BP stable. Was initially given IVF, started on IV abx for thrush and neutropenic fever. Overnight more hypoxic, started on hiflow, then went onto hiflow for increasing requirements. She is febrile still low grade 100.8, tachycardic, sats low 90s on 11/02 100% NIV, BP 90-100s. Awake, mild-mod resp distress. Moving all ext, able to follow commands. Overall cachetic appearing. -Acute Hypoxic Respiratory failure -Suspected bibasilar pneumonia -Devon oral thrush and esophagitis suspected -Severe Neutropenic Sepsis -Pancytopenia with Neutropenia -Marginal cell Lymphoma -Afib with RVR Plan: Neuro- delirium present still. suspect metabolic. asp prec. avoid bdz. delirium prec. CVS- severe sepsis, in setting of neutropenia, likley from pneumonia -Afib with RVR; some hypotension; start IV amio infusion, will need sharon for BP support; no AC given thrombocytopenia -start 1/2 NS 60cc/hr; PRN bolus -IV abx -DNR/DNI Resp-Hypoxic, sats mid 90s; on hiflow 100% 40lpms, tolerating well, NIV PRN if needed -CXR 2/ with progressive infiltrates+ chitra atelectasis? -bacteria? fungal etiology of resp distress? IV abx continued and IV antifungal for devon -no further wheeze; cont solumedrol 40mg IV q8h; taper tomorrow -Bronchodilators PRN, Asp prec ID- tmax 100.8; neutropenic+. Marginal cell Lymphoma, s/p Rituxan. -Devon mucositis, suspect esophagitis given difficulty swallowing. agree to cont fluconazole 200mg IV daily (day#3). -Given neutropenia, agree to cover HCAP organisms; cont Cefepime (day#2) -sputum culture if able GI- start liquid cardiac diet if off NIV. Asp Prec. Renal- Cr okay. K okay, no acidosis. Making urine, no mooney. start 1/2 NS 60cc/ hr. Heme- pancytopenic, neutropenic+. s/p ramón-grastim given. No plan for transfusion of prbc or plt. Neutropenic prec. -Marginal cell lymphoma; s/p 3/4 Rituxan Tx given. -follow up wth heme/onc Endo- fingerstick prn. cont synthroid if able to take po. Musculsk- pressure ulcer prophylaxis. Bedrest. Wounds- none Nutrition- cardiac diet if tolerated DVT prophylaxis: SCDs, no chemical proph 2/2 to thrombocytopenia GI prophylaxis: - Central Line: - Arterial Line: - Mooney Cathetor: - Disposition: Patient requires Critical Care/ICU for respiratory failure, severe sepsis Patient Clinical Status: unstable, critical Code Status: DNR/DNI Total Critical Care time is 35 minutes, excluding procedures/teaching Mateusz Hsieh MD [employer] (Electronically Signed)
--- NOTE | 2018-10-07 11:22 | PN ---
Progress Note - Progress Note Date of Service: 10/07/18 Note: at this moment, she is refusing any procedure or line. she is awake/alert, no distress, seems oriented Son had given consent. will try to talk to her again later afib, rvr, SBP 90s, map 60-65 will start amio peripherally IVF bolus as needed sharon as needed peripherally Mateusz Hsieh [employer] Bench [employer]
[2018-10-07] MEDS: Morphine VIAL* 4 MG/ML VIAL (1 ml vial) IV PRN (11:52)
--- NOTE | 2018-10-07 13:43 | PN ---
Progress Note - Progress Note Date of Service: 10/07/18 Note: Central Line Procedure Note Indication: venous access Diagnosis: severe sepsis, pneumonia, hypoxic respiratory failure acute Performed by: Mateusz Hsieh MD Consent: Informed ; placed in bedside chart Risks of procedure were explained if possible, all risks of pain/discomfort, bleeding, infection, PTX, Hemotx, need for chest tube, air/wire embolism, vessel injury, , and failed procedure disclosed and understanding verbalized Lorida Protocol: Time-out was performed and the correct patient and site were verified - Prior labs/history was reviewed prior to procedure - Full sterile precautions with chlorhexidine/full drapes/gowns/gloves utilized - Left Internal Jugular Vein visualized with ultrasound - Vessel accessed under ultrasound guidance with return of nonpulsatile blood. A guidewire was passed into vessel and confirmed in vessel with ultrasound. 1 attempt was made to access vessel. Vessel was dilated and cathetor was passed over wire into vessel. All ports demonstrated good blood return and flushed. Catheter was sutured to site and dressing applied. Adequate hemostasis was achieved EBL <5 cc No immediate complications noted, patient tolerated procedure well. Post Procedure CXR: Pending Mateusz Hsieh MD [employer] (Electronically Signed)
[2018-10-07] MEDS: Phenylephrine INJ* 50 MG in NS 0.9% 250 ML* 245 ML IV SCH (14:55)
[2018-10-07] MEDS ORDERED: Digoxin IV* 0.5 MG/2 ML AMP (0.25 MG/ML) IV SLOW PU ONE (16:41)
[2018-10-07] MEDS: Fluconazole 200 MG IVPREMIX(*) 200 MG/100 ML BAG IVPB SCH (17:17)
[2018-10-07] MEDS ORDERED: Amiodarone 360 MG IVPREMIX* 360 MG/200 ML BAG IV SCH (17:30)
[2018-10-07 21:52] LABS: Urine Appearance Cloudy; Urine Bacteria Absent (Absent); Urine Bilirubin Negative (Negative); Urine Blood Negative (Negative); Urine Color Amber; Urine Glucose Negative (Negative); Urine Ketones Negative (Negative); Urine Nitrite Negative (Negative); Urine Protein 1+(30 mg/dL) (Negative); Urine Red Blood Cell Trace(0-2/hpf) (Absent); Urine Specific Gravity 1.024 (1.010-1.030); Urine Squamous Epithelial Cell Present (Absent); Urine Urobilinogen Positive (Negative); Urine White Blood Cell Trace(0-5/hpf) (Absent)
[2018-10-08] MEDS: Albuterol/Ipratropium NEB.SOL* Albuterol 2.5 MG/Ipratropium 0.5 MG 3 ML INH SCH ×8 (02:03→23:50)
[2018-10-08] MEDS: methylPREDNISolone SOD 40 MG* 1 ML VIAL IV SCH ×2 (03:29→15:41)
[2018-10-08] MEDS: Magic Mouth Was-BEN/MAAL/LIDO SWISH SPIT SCH ×4 (08:18→20:23)
[2018-10-08] MEDS: FILGRASTIM-SNDZ* 480 MCG/0.8 ML SYRINGE SUBCUT SCH (08:18)
--- NOTE | 2018-10-08 08:35 | PN ---
Progress Note - Progress Note Date of Service: 10/08/18 SOAP: Subjective: much better today. needed central line and pressors for a while yesterday. per nursing choking on thin liquids. Objective: Vital Signs Temp Pulse Resp BP Pulse Ox 97.5 F 81 26 118/62 95 10/08/18 07:15 10/08/18 07:32 10/08/18 07:32 10/08/18 07:15 10/08/18 07:32 lying flat in nad mucositis thrush poor dentition rhonchi throughout s1 s2 rr soft nt +Bs no clear HSM 1+ LE edema, cool feet conversant grossly nonfocal Laboratory Results - last 24 hr 10/07/18 21:30 Urine Color Veronica Urine Appearance Cloudy Urine pH 5.0 Ur Specific [place] 1.024 Urine Protein 1+(30 mg/dl) A Urine Ketones Negative Urine Blood Negative Urine Nitrate Negative Urine Bilirubin Negative Urine Urobilinogen Positive A Ur Leukocyte Esterase Negative Urine WBC (Auto) Trace(0-5/hpf) Urine RBC (Auto) Trace(0-2/hpf) Ur Squamous Epith Cells Present A Urine Bacteria Absent Urine Glucose Negative Acetaminophen (Tylenol Tab*) 650 mg PO Q4H PRN PRN Reason: PAIN Albuterol/Ipratropium (Duoneb (Albuterol 2.5 Mg/Ipratropium 0.5 Mg)) 1 neb INH [id number] AWAKE [facility] Last Admin: 10/08/18 07:29 Dose: 1 neb Filgrastim-Sndz (Zarxio*) 480 mcg SUBCUT DAILY [facility] Last Admin: 10/08/18 08:18 Dose: 480 mcg Cefepime HCl (Maxipime 2 Gm In Dextrose Duplex (*)) 2 gm in 50 mls @ 100 mls/ hr IV Q12H [facility] Last Admin: 10/07/18 22:40 Dose: 100 mls/hr Fluconazole/Sodium Chloride (Diflucan 200 Mg Ivpremix(*)) 200 mg in 100 mls @ 100 mls/hr IVPB Q24H [facility] Last Admin: 10/07/18 17:17 Dose: 100 mls/hr Phenylephrine HCl 50 mg/ (Sodium Chloride) 250 mls @ 6 mls/hr IV Q24H [facility]; Protocol Last Admin: 10/07/18 14:55 Dose: 6 mls/hr Amiodarone HCl (Nexterone 360 Mg/200 Ml Ivpremix*) 360 mg in 200 mls @ 16.667 mls/hr IV .SEE PROTOCOL [facility] Last Admin: 10/07/18 17:25 Dose: 16.667 mls/hr Methylprednisolone Sodium Succinate (Solu-Medrol 40 Mg) 40 mg IV Q8H [facility] Last Admin: 10/08/18 03:29 Dose: 40 mg Morphine Sulfate (Morphine Vial*) 2 mg IV Q2H PRN PRN Reason: Pain/dyspnea Last Admin: 10/07/18 11:52 Dose: 2 mg Multi-Ingredient Mouthwash/Gargle (Magic Mouth Was-Dom/Maal/Lido*) 10 ml SWISH SPIT QID [facility] Last Admin: 10/08/18 08:18 Dose: 10 ml Assessment: 77 yo female with marginal zone lymphoma on single agent rituxan with severe pancytopenia, fevers, and respiratory distress. Plan: 1. Neutropenic fever - if counts do not recover over the next couple of days will plan to repeat bone marrow biopsy on Tuesday, check daily on neupogen - cont Neupogen - cont Cefepime 2. Hypoxia - likely due to thick secretions causing a mucus plug. ?aspiration per nursing concerns. swallow eval today - trial Vapotherm and metanebs to mobilize secretions -no intubation 3. afib w RVR: likely related to respiratory distress. BP limiting Tx options, will defer to CCM management -converted over night -cont amiodarone 4. Marginal zone lymphoma - s/p 3 of 4 weekly rituximab treatments 5. Thrush/mucositis - treat with IV fluconazole and magic mouth wash DNR/DNI, but aggressive measures up to that
[2018-10-08 09:09] LABS: Hematocrit 24 % (35-47); Hemoglobin 7.6 g/dl (12.0-16.0); Mean Corpuscular HGB Conc 32 g/dl (31-36); Mean Corpuscular Hemoglobin 30 pg (27-31); Mean Corpuscular Volume 94 fL (80-97); Mean Platelet Volume 10.3 fL (7.4-10.4); Platelet Count 13 10^3/ul (150-450); Red Blood Count 2.57 10^6/ul (4.00-5.40); Red Cell Distribution Width 19 % (10.5-15); White Blood Count 1.4 10^3/ul (3.5-10.8)
[2018-10-08 09:26] LABS: Albumin/Globulin Ratio 0.9 (1-3); BUN/Creatinine Ratio 76.6 (8-20); Calcium 9.5 mg/dL (8.6-10.3); EGFR African American 154.7 (>60); EGFR Non-African American 127.8 (>60); Globulin 2.3 g/dL (2-4); Magnesium 2.2 mg/dL (1.9-2.7); Total Bilirubin 1.5 mg/dL (0.2-1.0); Total Protein 4.3 g/dL (6.4-8.9)
[2018-10-08] MEDS: Cefepime 2 GM in Dextrose(*) 2 GM/50 ML BAG IV SCH (09:48)
[2018-10-08 09:49] LABS: Immature Granulocytes 7 % (0-9); Lymphocytes % 50 %; Monocytes % 1 %; Neutrophil % 26 %; Variant Lymph % 16 % (0-6)
[2018-10-08 09:50] LABS: ABS Neutrophils 0.5 10^3/ul (1.5-7.7)
[2018-10-08 09:52] LABS: Tear Drop Cells 1+
--- NOTE | 2018-10-08 11:04 | PN ---
Progress Note - Progress Note Date of Service: 10/08/18 Note: Progress Note -- Critical Care 24 hour events -awake, alert. -rapid afib improved, now coverted to NSR -off sharon for bp support -no resp distress -unable to swallow, coughing on any liquids or food, made NPO -afebrile Tele: AFib, now in NSR Vitals: Vital Signs Temp 97.7 F 10/08/18 10:15 Pulse 91 10/08/18 10:45 Resp 24 10/08/18 10:45 BP 91/59 10/08/18 10:45 Pulse Ox 93 10/08/18 10:45 Intake & Output 10/07/18 10/08/18 10/08/18 18:59 06:59 18:59 Intake Total 1025 645 Output Total 0 245 75 Balance 1025 400 -75 Weight 60.3 kg Intake: IV Fluids 700 454 ABX - CEFEPIME 26 KVO 136 NORMAL SALINE 500 318 NS (0.45%) 174 IVPB 50 ABX - CEFEPIME 50 Medicated IV 275 191 CC - Amiodarone 275 152 CC - Phenylephrine/ 39 Neosynephrine Oral 0 Output: Urine 0 60 Mooney 185 75 Other: Estimated Void Large # Voids 1 O2/Vent: hiflow 100% 40lpm Infusions: amio 0.5mg/hr Current Medications: Acetaminophen (Tylenol Tab*) 650 mg PO Q4H PRN PRN Reason: PAIN Albuterol/Ipratropium (Duoneb (Albuterol 2.5 Mg/Ipratropium 0.5 Mg)) 1 neb INH [id number] AWAKE [facility] Last Admin: 10/08/18 07:29 Dose: 1 neb Filgrastim-Sndz (Zarxio*) 480 mcg SUBCUT DAILY [facility] Last Admin: 10/08/18 08:18 Dose: 480 mcg Cefepime HCl (Maxipime 2 Gm In Dextrose Duplex (*)) 2 gm in 50 mls @ 100 mls/ hr IV Q12H [facility] Last Admin: 10/08/18 09:48 Dose: 100 mls/hr Fluconazole/Sodium Chloride (Diflucan 200 Mg Ivpremix(*)) 200 mg in 100 mls @ 100 mls/hr IVPB Q24H [facility] Last Admin: 10/07/18 17:17 Dose: 100 mls/hr Phenylephrine HCl 50 mg/ (Sodium Chloride) 250 mls @ 6 mls/hr IV Q24H [facility]; Protocol Last Admin: 10/07/18 14:55 Dose: 6 mls/hr Amiodarone HCl (Nexterone 360 Mg/200 Ml Ivpremix*) 360 mg in 200 mls @ 16.667 mls/hr IV .SEE PROTOCOL [facility] Last Admin: 10/07/18 17:25 Dose: 16.667 mls/hr Methylprednisolone Sodium Succinate (Solu-Medrol 40 Mg) 40 mg IV Q12H [facility] Morphine Sulfate (Morphine Vial*) 2 mg IV Q2H PRN PRN Reason: Pain/dyspnea Last Admin: 10/07/18 11:52 Dose: 2 mg Multi-Ingredient Mouthwash/Gargle (Magic Mouth Was-Dom/Maal/Lido*) 10 ml SWISH SPIT QID [facility] Last Admin: 10/08/18 08:18 Dose: 10 ml Physical Exam: General: awake, alert, no resp distress, no diaphoresis Head: normocephalic, atraumatic HEENT: no pallor, no icterus, moist mucous membranes Neck: soft, supple, no jvd, no stridor CVS: tachy, regular, no murmur Resp: bilateral air entry, no rhales/rhonchi, soem dec BS at bases, no acc muscle use Abdomen: soft, nontender, nondistended, bowel sounds + Ext: pulses+, warm, no edema Skin: intact Neuro: awake, alert, orientedx3, moving all extremities Labs: Laboratory Results - last 24 hr 10/07/18 10/08/18 10/08/18 21:30 08:53 08:53 WBC 1.4 L RBC 2.57 L Hgb 7.6 L Hct 24 L MCV 94 MCH 30 MCHC 32 RDW 19 H Plt Count 13 L MPV 10.3 Immature Gran % 7 Neutrophils % 26 Band Neutrophils % 7 Lymphocytes % 50 Reactive Lymphs % 16 H D Monocytes % 1 Abs Neuts (Manual) 0.5 L Abs Lymphs (Manual) 0.9 L Abs Monocytes (Manual) 0.01 Normal RBC Morphology Not Reportable Hypochromasia 2+ Anisocytosis 1+ Tear Drop Cells 1+ Elliptocytes 1+ Sodium 143 Potassium 3.0 L Chloride 108 Carbon Dioxide 28 Anion Gap 7 BUN 36 H Creatinine 0.47 L Est GFR ( Amer) 154.7 Est GFR (Non-Af Amer) 127.8 BUN/Creatinine Ratio 76.6 H Glucose 185 H Calcium 9.5 Magnesium 2.2 Total Bilirubin 1.50 H AST 8 L ALT 10 Alkaline Phosphatase 76 Total Protein 4.3 L Albumin 2.0 L Globulin 2.3 Albumin/Globulin Ratio 0.9 L Urine Color Veronica Urine Appearance Cloudy Urine pH 5.0 Ur Specific [place] 1.024 Urine Protein 1+(30 mg/dl) A Urine Ketones Negative Urine Blood Negative Urine Nitrate Negative Urine Bilirubin Negative Urine Urobilinogen Positive A Ur Leukocyte Esterase Negative Urine WBC (Auto) Trace(0-5/hpf) Urine RBC (Auto) Trace(0-2/hpf) Ur Squamous Epith Cells Present A Urine Bacteria Absent Urine Glucose Negative Imaging: cxr 10/05 and cxr 10/06 - noted some left lower lobe infiltrate, worsened RLL consolidation+ vs atelectasis; mild congestion+ cxr 10/08 - bibasilar congestion and consolidations+ Assessment: 77y F w/pmhx of hypothyroidism, HTN, COPD, 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 Noted to have worsening oral thrush and increased. She came in dyspneic, placed on 2 L NC. Cough+. Oral pain on swallowing/odynophadia+. in ER, sats 78%, increased fio2 to 6L. Tmax 99.7, tachypneic. BP stable. Was initially given IVF, started on IV abx for thrush and neutropenic fever. Overnight more hypoxic, started on hiflow, then went onto hiflow for increasing requirements. She is febrile still low grade 100.8, tachycardic, sats low 90s on 11/02 100% NIV, BP 90-100s. Awake, mild-mod resp distress. Moving all ext, able to follow commands. Overall cachetic appearing. -Acute Hypoxic Respiratory failure -Suspected bibasilar pneumonia -Devon oral thrush and esophagitis suspected -Severe Neutropenic Sepsis -Pancytopenia with Neutropenia -Marginal cell Lymphoma -Afib with RVR Plan: Neuro- delirium better today, suspect metabolic. asp prec. avoid bdz. delirium prec. CVS- -severe sepsis, in setting of neutropenia, likley from pneumonia -was on IV sharon yesterday for combination sepsis + cardiogenic shock; now off pressors -Afib with RVR, resolved; converted to NSR; complete IV amio infusion today. will start PO amio. will try PO metoprolol low dose if able; no AC given thrombocytopenia -off IVF -IV abx -DNR/DNI Resp-Hypoxic, sats mid mid 90s, more comfortable, no distress; cough+ but no sputum -cont hiflow 100% 40lpms, tolerating well, NIV PRN if needed -CXR 2/10 with progressive infiltrates+, likley consolidation, some congestion -bacteria? fungal etiology of resp distress? IV abx continued and IV antifungal for devon -no further wheeze; dec solumedrol 40mg IV q12h -Bronchodilators PRN, Asp prec ID- afebrile; neutropenic+. Marginal cell Lymphoma, s/p Rituxan. -Devon mucositis, suspect esophagitis given difficulty swallowing. agree to cont fluconazole 200mg IV daily (day#4). -Given neutropenia, agree to cover HCAP organisms; cont Cefepime (day#3) -sputum culture if able GI- aspirating+. NPO. swallow eval tomorrow. Asp Prec. Renal- Cr okay. K 3.0; replete IV KCL 60meq. no acidosis. Making urine, no mooney. off IVF. Possible d/c mooney later today. Heme- -pancytopenic, neutropenic+. s/p ramón-grastim given. Neutropenic prec. -drop in h/h and plt. no bleeding. check cbc tomorrow, may need plt transfusion and PRBC. -Onc notes reviewed; if ocntinued drop in counts, may plan BM again -Marginal cell lymphoma; s/p 3/4 Rituxan Tx given. Endo- fingerstick prn. cont synthroid if able Musculsk- pressure ulcer prophylaxis. oob to chair Wounds- none Nutrition- cardiac diet if tolerated DVT prophylaxis: SCDs, no chemical proph 2/2 to thrombocytopenia GI prophylaxis: - Central Line: Left IJ 10/07 Arterial Line: - Mooney Cathetor: yes Disposition: Patient requires Critical Care/ICU for respiratory failure, severe sepsis Patient Clinical Status: stable, critical Code Status: DNR/DNI Total Critical Care time is 35 minutes, excluding procedures/teaching Mateusz Hsieh MD [employer] (Electronically Signed)
[2018-10-08] MEDS: KCL 20 MEQ/100 ML IVPREMIX* 20 MEQ/100 ML BAG IV SCH ×2 (11:44→14:21)
[2018-10-08] MEDS ORDERED: Potassium Chloride IV* 40 MEQ in NS 0.9% 250 ML* 250 ML IVPB ONE (14:00)
[2018-10-08] MEDS: Fluconazole 200 MG IVPREMIX(*) 200 MG/100 ML BAG IVPB SCH (17:13)
[2018-10-08] MEDS: Furosemide IV* 10 MG/ML 2 ML VIAL (20 MG) IV SCH (18:08)
[2018-10-08] MEDS: Phenylephrine INJ* 50 MG in NS 0.9% 250 ML* 245 ML IV SCH (20:23)
[2018-10-09] MEDS: Cefepime 2 GM in Dextrose(*) 2 GM/50 ML BAG IV SCH ×2 (00:03→09:43)
[2018-10-09] MEDS: Albuterol/Ipratropium NEB.SOL* Albuterol 2.5 MG/Ipratropium 0.5 MG 3 ML INH SCH ×3 (03:40→10:53)
[2018-10-09 06:42] LABS: Hematocrit 26 % (35-47); Hemoglobin 7.9 g/dl (12.0-16.0); Mean Corpuscular HGB Conc 31 g/dl (31-36); Mean Corpuscular Hemoglobin 29 pg (27-31); Mean Corpuscular Volume 95 fL (80-97); Mean Platelet Volume 10.9 fL (7.4-10.4); Platelet Count 9 10^3/ul (150-450); Red Blood Count 2.69 10^6/ul (4.00-5.40); Red Cell Distribution Width 19 % (10.5-15); White Blood Count 1.1 10^3/ul (3.5-10.8)
[2018-10-09] MEDS: methylPREDNISolone SOD 40 MG* 1 ML VIAL IV SCH (06:50)
[2018-10-09 06:52] LABS: BUN/Creatinine Ratio 82.1 (8-20); EGFR African American 126.4 (>60); EGFR Non-African American 104.4 (>60); Potassium 3.9 mmol/L (3.5-5.0)
[2018-10-09 07:54] LABS: Lymphocytes % 35 %; Monocytes % 1 %; Neutrophil % 48 %
[2018-10-09 07:55] LABS: Immature Granulocytes 6 % (0-9); Metamyelocytes % 2 % (0-2); Myelocytes % 1 % (0-1); Tear Drop Cells 1+; Variant Lymph % 10 % (0-6)
[2018-10-09 07:56] LABS: ABS Neutrophils 0.6 10^3/ul (1.5-7.7)
[2018-10-09] MEDS: Furosemide IV* 10 MG/ML 2 ML VIAL (20 MG) IV SCH (08:05)
[2018-10-09] MEDS: Magic Mouth Was-BEN/MAAL/LIDO SWISH SPIT SCH ×2 (08:49→13:26)
[2018-10-09] MEDS: FILGRASTIM-SNDZ* 480 MCG/0.8 ML SYRINGE SUBCUT SCH (09:04)
--- NOTE | 2018-10-09 09:05 | PN ---
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 Also reports Dyspnea and cough overnight requiring 2L NC O2. On exam VSS, ill- appearing with parhyngeal edema, thick, [id number] secretions and white patches along side of mouth. Lung sounds clear. Leukopenic with WBC 1.7. while in ED, sats dropped requiring O2 to be increased to 6L. Admitted to the medical service for stabilization. 10/06: Requiring BiPAP with FiO2 100 %. Mission Worker service consulted. Transferred to ICU for vapotherm. Started on Neupogen for Leukopenia and Cefepime for questionable LLL infiltrate. Developed delirium 10/07: Atrial fibrillation with RVR; started on Amiodarone and requiring Neosynephrine gtt for hypotension.: 10/08: Weaned off vasopressors. Converted back to NSR. Noted to choke on thin liquids by nursing staff- made NPO. Respiratory status improved 10/09: increased work of breathing and sats 88% on highflow. Switched to BiPAP. Back in AFib with RVR. Rebolused with Amiodarone and gtt started. Vital Signs: Temp Pulse Resp BP SpO2 FiO2 97.3 F 95 31 143/81 89 100 10/09/18 08:00 10/09/18 08:00 10/09/18 08:00 10/09/18 08:00 10/09/18 08:00 10/09 08:00 Physical Exam: Gen: resting in bed HEENT: BiPAP mask in place Lungs: Distant in bases bilaterally Cardiac: irregularly irregular Abdomen: soft, NTND Extremities: warm, dry, mild peripheral edema Neuro: lethargic but responsive Fluid Balance (Past 24 Hours): I= O= Net Intake & Output 10/07/18 10/08/18 10/09/18 10/10/18 06:59 06:59 06:59 06:59 Intake Total 261 8330 477 Output Total 865 7894 260 Balance 261 1425 -747 -260 Weight 135 lb 9.602 oz 132 lb 15.02 oz 133 lb 2.547 oz Intake: IV Fluids 11 1154 128 ABX - CEFEPIME 26 ANTIFUNGAL - FLUCONAZOLE 7 KVO 11 136 60 NORMAL SALINE 818 45 NS (0.45%) 174 16 IVPB 250 50 211 ABX - CEFEPIME 50 50 ANTIFUNGAL - FLUCONAZOLE 104 KCL 200 107 Medicated IV 466 138 CC - Amiodarone 427 129 CC - Phenylephrine/ 39 9 Neosynephrine Oral 0 0 Output: Urine 60 Downing 185 1224 260 Other: Estimated Void Large Large # Voids 1 1 ADLs: Meal Record Start: 10/05/18 18: 15 Freq: DAILY@0900,1400,1800 Status: Active Protocol: Created 10/05/18 18:15 System (Rec: 10/05/18 18:15 System TELE-C06) Document 10/06/18 09:59 [id number] (Rec: 10/06/18 09:59 [id number] ICU-M27) Document 10/06/18 13:41 [id number] (Rec: 10/06/18 13:41 [id number] ICU-C10) Document 10/06/18 17:25 [id number] (Rec: 10/06/18 17:25 [id number] ICU-C10) Document 10/07/18 09:00 [id number] (Rec: 10/07/18 11:11 [id number] ICU-C14) Document 10/08/18 14:00 [id number] (Rec: 10/08/18 14:12 [id number] ICU-C15) Document 10/08/18 17:23 [id number] (Rec: 10/08/18 17:23 [id number] ICU-C15) ADLs: Meal Record Start: 10/06/18 09: 55 Freq: 09,13,18 Status: Complete Protocol: Created 10/06/18 09:55 [id number] (Rec: 10/06/18 09:55 [id number] ICU-M27) Document 10/06/18 13:00 [id number] (Rec: 10/06/18 13:08 [id number] ICU-C10) Intake and Output Start: 10/05/18 14: 21 Freq: Status: Active Protocol: Created 10/05/18 14:21 System (Rec: 10/05/18 14:21 System [id number]-C03) Intake and Output Start: 10/05/18 18: 15 Freq: DAILY@0600,1400,2200 Status: Active Protocol: Created 10/05/18 18:15 System (Rec: 10/05/18 18:15 System TELE-C06) Document 10/05/18 22:00 [id number] (Rec: 10/05/18 22:51 [id number] TELE-C01) Document 10/06/18 06:00 [id number] (Rec: 10/06/18 06:36 FLB3739 TELE-C34) Document 10/06/18 13:41 [id number] (Rec: 10/06/18 13:41 [id number] ICU-C10) Document 10/06/18 22:45 [id number] (Rec: 10/06/18 23:16 [id number] ICU-C15) Document 10/07/18 14:00 EXQ0825 (Rec: 10/07/18 15:02 WUS0381 ICU-M27) Document 10/07/18 22:00 TIF2388 (Rec: 10/07/18 22:33 [id number] ICU-M27) Document 10/08/18 06:00 HQU7500 (Rec: 10/08/18 06:50 SLG2030 ICU-L03) Document 10/08/18 14:00 IPE9655 (Rec: 10/08/18 14:15 LRO7633 ICU-C15) Document 10/08/18 22:00 [id number] (Rec: 10/08/18 22:42 JMV2804 ICU-M23) Document 10/09/18 06:00 YIQ0875 (Rec: 10/09/18 06:42 [id number] ICU-M23) Document 10/09/18 08:15 [id number] (Rec: 10/09/18 08:15 TXI5272 ICU-M27) Document 10/09/18 08:44 ESO8915 (Rec: 10/09/18 08:44 AJA3761 ICU-M27) Intake and Output Start: 10/06/18 09: 55 Freq: Q4HR Status: Complete Protocol: Created 10/06/18 09:55 [id number] (Rec: 10/06/18 09:55 GRU1076 ICU-M27) Document 10/06/18 11:52 [id number] (Rec: 10/06/18 11:52 [id number] ICU-C10) Document 10/06/18 17:22 [id number] (Rec: 10/06/18 17:22 [id number] ICU-M27) Document 10/06/18 20:00 [id number] (Rec: 10/06/18 21:10 [id number] ICU-C15) Document 10/07/18 02:00 RKG0151 (Rec: 10/07/18 03:59 [id number] ICU-C15) Document 10/07/18 03:59 HRI1338 (Rec: 10/07/18 04:00 CQY3075 ICU-C11) Document 10/07/18 08:00 YBL8501 (Rec: 10/07/18 09:37 PUP0085 ICU-C14) Document 10/07/18 12:00 RDU9784 (Rec: 10/07/18 13:30 IZF0618 ICU-M27) Document 10/07/18 16:00 JSG3272 (Rec: 10/07/18 16:55 [id number] ICU-M29) Document 10/08/18 00:00 JBQ9179 (Rec: 10/08/18 00:49 [id number] ICU-L03) Document 10/08/18 04:00 IYQ6802 (Rec: 10/08/18 05:00 IEW9836 ICU-L03) Document 10/08/18 08:00 [id number] (Rec: 10/08/18 08:41 IKQ1959 ICU-C15) Document 10/08/18 10:53 CSB1010 (Rec: 10/08/18 10:53 [id number] ICU-C15) Document 10/08/18 11:48 [id number] (Rec: 10/08/18 11:48 PTK4318 ICU-C15) Document 10/08/18 16:00 DMR3028 (Rec: 10/08/18 16:40 [id number] ICU-C15) Document 10/08/18 17:17 UMO6525 (Rec: 10/08/18 17:17 [id number] ICU-C14) Document 10/08/18 18:18 [id number] (Rec: 10/08/18 18:18 SBI7232 ICU-C15) Document 10/08/18 20:00 [id number] (Rec: 10/08/18 20:12 [id number] ICU-M27) Document 10/09/18 00:00 [id number] (Rec: 10/09/18 00:09 [id number] ICU-M27) Document 10/09/18 04:00 [id number] (Rec: 10/09/18 05:56 [id number] ICU-C25) Labs: Laboratory Results - last 24 hr 10/08/18 10/08/18 10/09/18 08:53 08:53 06:00 WBC 1.4 L RBC 2.57 L Hgb 7.6 L Hct 24 L MCV 94 MCH 30 MCHC 32 RDW 19 H Plt Count 13 L MPV 10.3 Neut % (Auto) Lymph % (Auto) Emmons % (Auto) Eos % (Auto) Baso % (Auto) Absolute Neuts (auto) Absolute Lymphs (auto) Absolute Monos (auto) Absolute Eos (auto) Absolute Basos (auto) Absolute Nucleated RBC Immature Gran % 7 Neutrophils % 26 Band Neutrophils % 7 Lymphocytes % 50 Reactive Lymphs % 16 H D Monocytes % 1 Metamyelocytes % Myelocytes % Nucleated RBC % Abs Neuts (Manual) 0.5 L Abs Lymphs (Manual) 0.9 L Abs Monocytes (Manual) 0.01 Normal RBC Morphology Not Reportable Hypochromasia 2+ Anisocytosis 1+ Tear Drop Cells 1+ Elliptocytes 1+ Sodium 143 145 Potassium 3.0 L 3.9 Chloride 108 112 H Carbon Dioxide 28 28 Anion Gap 7 5 BUN 36 H 46 H Creatinine 0.47 L 0.56 Est GFR ( Amer) 154.7 126.4 Est GFR (Non-Af Amer) 127.8 104.4 BUN/Creatinine Ratio 76.6 H 82.1 H Glucose 185 H 200 H Calcium 9.5 10.0 Magnesium 2.2 Total Bilirubin 1.50 H AST 8 L ALT 10 Alkaline Phosphatase 76 Total Protein 4.3 L Albumin 2.0 L Globulin 2.3 Albumin/Globulin Ratio 0.9 L Blood Type Antibody Screen 10/09/18 10/09/18 06:00 06:00 WBC 1.1 L RBC 2.69 L Hgb 7.9 L Hct 26 L MCV 95 MCH 29 MCHC 31 RDW 19 H Plt Count 9 L* MPV 10.9 H Neut % (Auto) Ged Preparation Teacher Lymph % (Auto) Ged Preparation Teacher Emmons % (Auto) Ged Preparation Teacher Eos % (Auto) Ged Preparation Teacher Baso % (Auto) Ged Preparation Teacher Absolute Neuts (auto) Ged Preparation Teacher Absolute Lymphs (auto) Ged Preparation Teacher Absolute Monos (auto) Ged Preparation Teacher Absolute Eos (auto) Ged Preparation Teacher Absolute Basos (auto) Ged Preparation Teacher Absolute Nucleated RBC Ged Preparation Teacher Immature Gran % 6 Neutrophils % 48 Band Neutrophils % 3 Lymphocytes % 35 Reactive Lymphs % 10 H D Monocytes % 1 Metamyelocytes % 2 Myelocytes % 1 Nucleated RBC % Ged Preparation Teacher Abs Neuts (Manual) 0.6 L Abs Lymphs (Manual) 0.5 L Abs Monocytes (Manual) 0 Normal RBC Morphology Not Reportable Hypochromasia Anisocytosis 1+ Tear Drop Cells 1+ Elliptocytes 1+ Sodium Potassium Chloride Carbon Dioxide Anion Gap BUN Creatinine Est GFR ( Amer) Est GFR (Non-Af Amer) BUN/Creatinine Ratio Glucose Calcium Magnesium Total Bilirubin AST ALT Alkaline Phosphatase Total Protein Albumin Globulin Albumin/Globulin Ratio Blood Type A Negative Antibody Screen Negative Studies: 10/09 CXR - completed, read pending 10/08 CXR - bilateral infiltrates and pleural effusions, unchanged 10/07 CXR - CHF with interval progression. 10/06 CXR - Bilateral infiltrates with interval progression, appearance favoring pneumonia over CHF Nutrition: NPO secondary to dysphagia Impression: 77 yo F with marginal cell lymphoma on Rituximab admitted on 10/05 with dyspnea and neutropenic fever. Found to have bibasilar infiltrates; on Cefepime and diflucan. Continues to have extremely tenuous respiratory status requiring BiPAP and Vapotherm for support. DNR/DNI. Family considering comfort care options. Plan: Cardiovascular: (1) Atrial fibrillation with RVR; (2) Hx of benign essential hypertension -- HR 79-104, now in AFib with rate 130s -- SBP 99-143 -- Telemetry -- Amiodarone gtt for atrial fibrillation with RVR. Home meds: None Pulmonary: (1) Acute hypoxic respiratory failure; (2) Community acquired bilateral pneumonia; -- RR 18-35 -- sats 80-97 -- now on BiPAP -- CXR: dense bilateral perihilar infiltrates and bilateral effusions -- ABG: pending -- Duo nebs as needed Home meds: None Gastrointestinal: (1) Dysphagia -- diet: NPO. Will need swallow eval prior to resuming diet -- bowel regimen: None -- ulcer prophylaxis: Protonix while on steriods Home meds: None Endocrine: (1) Chronic hypothyroidism -- monitor BGs -- Solumedrol Home meds: Synthroid Renal: No acute issues -- UOP: 50 ml/hr -- I/O:477 in/ 1224 out -- Cr 0.56 -- Lytes Na 145 from 143 K 3.9 Ca 10.0 Mag 2.2 on 10/08 -- Received lasix 40 mg IV X 1 this AM with response Home meds: None Infectious disease: (1) Marisa oral thrush; (2) Neutropenic fever with sepsis , severe; (3) Community acquired bilateral pneumonia -- Tmax 97.9 -- WBC 1.1 from 1.4, on Filgastrim -- Micro 10/07 blood no growth to date urine negative 10/06 blood no growth to date 10/05 flu negative blood no growth to date -- ABX Cefepime Diflucan Home meds: Nystatin Neurologic: (1) Acute metabolic encephalopathy -- Tylenol as needed -- Morphine as needed for pain or dyspnea Home meds: Tylenol Hematological: (1) Marginal cell lymphoma on Rituxan; (2) Pancytopenia with neutropenia -- Hgb 7.9 from 7.6, follow trend -- Plt 9 from 13, no active bleeding. txf 1 U Plt -- DVT prophylaxis: SCDs -- possible bone marrow biopsy Home meds: None Metabolic: No acute issues Home meds: None Other: No acute issues Home meds: MVI Deep vein thrombosis prophylaxis: SCDs Dietary: Protonix while on steriods Condition: critical Prognosis: poor Code status: DNR/DNI Disposition: continue ICU Care Family updated regarding this morning's change in status and plan of care. Discussed her extremely tenuous state and that any further deterioration would likely not be tolerated well. Recommended any family wishing to be present make arrangements to come into town. Family asking about next steps and options for hospice, discussed comfort care options. Cumulative time spent in the care of this patient (excluding any procedure time) : at least 60 minutes. Patient care included clinical interview (with patient and/or family), bedside exam of the patient, review of labs, x-rays, and other ancillary data, coordination of (respiratory, nursing care, review of patient's records, discussion regarding patients management with involved consultants, primary physician, pharmacists, and other healthcare personnel (dietary, case management , physical/occupational therapy etc.) Critical Care Time: 60 min
[2018-10-09] MEDS ORDERED: Amiodarone 150 MG IVPREMIX* 150 MG/100 ML BAG IV ONE (09:17)
[2018-10-09] MEDS ORDERED: Amiodarone 360 MG IVPREMIX* 360 MG/200 ML BAG IV ONE (09:30)
[2018-10-09] MEDS ORDERED: Phenylephrine INJ* 50 MG in NS 0.9% 250 ML* 245 ML IV SCH (10:00)
--- NOTE | 2018-10-09 11:31 | PN ---
Progress Note - Progress Note Date of Service: 10/09/18 SOAP: Subjective: []She looks terrible. Not responsive and struggling on bi pap. Acetaminophen (Tylenol Tab*) 650 mg PO Q4H PRN PRN Reason: PAIN Albuterol/Ipratropium (Duoneb (Albuterol 2.5 Mg/Ipratropium 0.5 Mg)) 1 neb INH [id number] AWAKE [facility] Last Admin: 10/09/18 10:53 Dose: 1 neb Filgrastim-Sndz (Zarxio*) 480 mcg SUBCUT DAILY [facility] Last Admin: 10/09/18 09:04 Dose: 480 mcg Furosemide (Lasix Iv*) 20 mg IV SLOW PU ONCE ONE Stop: 10/09/18 12:01 Cefepime HCl (Maxipime 2 Gm In Dextrose Duplex (*)) 2 gm in 50 mls @ 100 mls/ hr IV Q12H [facility] Last Admin: 10/09/18 09:43 Dose: 100 mls/hr Fluconazole/Sodium Chloride (Diflucan 200 Mg Ivpremix(*)) 200 mg in 100 mls @ 100 mls/hr IVPB Q24H [facility] Last Admin: 10/08/18 17:13 Dose: 100 mls/hr Amiodarone HCl (Nexterone 360 Mg/200 Ml Ivpremix*) 360 mg in 200 mls @ 16.667 mls/hr IV .SEE PROTOCOL [facility] Last Admin: 10/07/18 17:25 Dose: 16.667 mls/hr Amiodarone HCl (Nexterone 360 Mg/200 Ml Ivpremix*) 360 mg in 200 mls @ 33.333 mls/hr IV ONCE ONE Stop: 10/09/18 15:29 Last Admin: 10/09/18 10:00 Dose: 33.333 mls/hr Amiodarone HCl (Nexterone 360 Mg/200 Ml Ivpremix*) 360 mg in 200 mls @ 16.667 mls/hr IV PER RATE [facility]; Protocol Stop: 10/10/18 09:30 Phenylephrine HCl 50 mg/ (Sodium Chloride) 250 mls @ 30 mls/hr IV Q8H [facility]; Protocol Methylprednisolone Sodium Succinate (Solu-Medrol 40 Mg) 40 mg IV Q12H [facility] Last Admin: 10/09/18 06:50 Dose: 40 mg Morphine Sulfate (Morphine Vial*) 2 mg IV Q2H PRN PRN Reason: Pain/dyspnea Last Admin: 10/07/18 11:52 Dose: 2 mg Multi-Ingredient Mouthwash/Gargle (Magic Mouth Was-Dom/Maal/Lido*) 10 ml SWISH SPIT QID JOHNNIE Last Admin: 10/09/18 08:49 Dose: Not Given Objective: [] Vital Signs Temp Pulse Resp BP Pulse Ox 98.2 F 114 33 107/73 96 10/09/18 10:45 10/09/18 10:53 10/09/18 10:53 10/09/18 10:45 10/09/18 10:53 HEENT on vapotherm, pale lungs rapid breaths, shallow heart rapid abd no spleen +bs ext edema, chronic, cool Assessment: 77 yo female with marginal zone lymphoma on single agent rituxan with severe pancytopenia, fevers, and respiratory distress. Course further complicated by aspiration and arrhythmias. Continued pancytopenia. Plan: 1. Discussed with son that I do not think she will survive. They are considering comfort care. 2. Panctopenia. No further evaluation or transfusion pending family discussion. Supportive care - cont Neupogen - cont Cefepime 2. Hypoxia - likely due to thick secretions causing a mucus plug or aspiration - continue vapotherm 3. afib w RVR: Cont amiodarone 4. Marginal zone lymphoma is in remission DNR/DNI,
[2018-10-09] MEDS ORDERED: Furosemide IV* 10 MG/ML 2 ML VIAL (20 MG) IV SLOW PU ONE (12:00)
[2018-10-09] MEDS ORDERED: Atropine 1% (ORAL/SL)* 15 ML BTL SL PRN (12:31)
[2018-10-09] MEDS ORDERED: Ondansetron ODT TAB* 4 MG SL PRN (12:31)
[2018-10-09] MEDS ORDERED: LORazepam TAB(*) 1 MG SL PRN (12:31)
[2018-10-09] MEDS ORDERED: Haloperidol INJ IV/IM* 5 MG/ML AMP IV SLOW PU PRN (12:31)
[2018-10-09] MEDS ORDERED: Morphine ORAL CONCENTRATE* 5 MG/0.25 ML ORAL.SYRIN SL PRN (12:31)
--- NOTE | 2018-10-09 12:31 | PN ---
Progress Note - Progress Note Date of Service: 10/09/18 Note: Family asked to speak with me. She was switched to Vapotherm so she could speak to her . They feel that Ms. Bowens is suffering and that further invasive care is not in her best interest. They are all in agreement that they wish to pursue comfort measures only at this time. We discussed what this would entail and they would like to proceed now. orders placed.
[2018-10-09 12:32] VITALS: BP 108/66
[2018-10-09] MEDS ORDERED: Morphine PCA ADULT* 5 MG/ML 30 ML PCA SCH (13:00)
[2018-10-09] MEDS ORDERED: Scopolamine 1.5 mg* PATCH TRANSDERM SCH (13:00)
[2018-10-09] MEDS ORDERED: Amiodarone 360 MG IVPREMIX* 360 MG/200 ML BAG IV SCH (15:30)
--- NOTE | 2018-10-09 16:31 | DS ---
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 Also reports Dyspnea and cough overnight requiring 2L NC O2. On exam VSS, ill- appearing with parhyngeal edema, thick, [id number] secretions and white patches along side of mouth. Lung sounds clear. Leukopenic with WBC 1.7. while in ED, sats dropped requiring O2 to be increased to 6L. Admitted to the medical service for stabilization. 10/06: Requiring BiPAP with FiO2 100 %. Maintenance Department Technician service consulted. Transferred to ICU for vapotherm. Started on Neupogen for Leukopenia and Cefepime for questionable LLL infiltrate. Developed delirium 10/07: Atrial fibrillation with RVR; started on Amiodarone and requiring Neosynephrine gtt for hypotension.: 10/08: Weaned off vasopressors. Converted back to NSR. Noted to choke on thin liquids by nursing staff- made NPO. Respiratory status improved 10/09: increased work of breathing and sats 88% on highflow. Switched to BiPAP. Back in AFib with RVR. Rebolused with Amiodarone and gtt started. Family meeting held and decision made to proceed with comfort measures only. Started on Morphine gtt and transitioned off Vapotherm. She passed several hours later with family present at bedside. Data review: Labs and Xrays reviewed Consults: none Procedures: Central line placement Significant diagnostic studies: CXR with perihilar infiltrates bilaterally WBC 1.1 Treatments: comfort measures Morphine gtt Atropine and scopalamine for secretions Ativan for anxiety Cardiac Amiodarone Lasix Antibiotics Cefepime Fluconazole Heme filgastrim Summary took approximately 20 min
[2018-10-12] MEDS ORDERED: Scopolamine PATCH Remove* 1 NOTE MISC PATCH OFF SCH (12:33)
== END 2018-10-09 16:15 | disposition expired | DRG 871 ==
LOC: ED 14:12 → MEDTELE 17:22 → ICU 10-06 09:26 → INTOOBSV 10-06 09:37 → OBSVTOIN 10-06 09:37
PROVIDERS: ADMIT Internal Medicine Hematology & Oncology; ATTEND Internal Medicine Critical Care Medicine
PROC: 05HQ33Z Insertion of Infusion Device into Left External Jugular Vein, Percutaneous Approach (ICD-10-PCS; principal; 2018-10-07)
PROC: B544ZZA Ultrasonography of Left Jugular Veins, Guidance (ICD-10-PCS; 2018-10-07)
PROC: 30233K1 Transfusion of Nonautologous Frozen Plasma into Peripheral Vein, Percutaneous Approach (ICD-10-PCS; 2018-10-09)
DX: A41.9 Sepsis, unspecified organism (principal); J18.9 Pneumonia, unspecified organism; J96.01 Acute respiratory failure with hypoxia; G93.41 Metabolic encephalopathy; B37.0 Candidal stomatitis; C85.90 Non-Hodgkin lymphoma, unspecified, unspecified site; D61.818 Other pancytopenia; J98.11 Atelectasis; R64 Cachexia; R65.20 Severe sepsis without septic shock; Z66 Do not resuscitate; J44.9 Chronic obstructive pulmonary disease, unspecified; I48.91 Unspecified atrial fibrillation; R13.10 Dysphagia, unspecified; R50.81 Fever presenting with conditions classified elsewhere; E03.9 Hypothyroidism, unspecified; K20.8 Other esophagitis; I10 Essential (primary) hypertension; F17.210 Nicotine dependence, cigarettes, uncomplicated; Z51.5 Encounter for palliative care; K12.30 Oral mucositis (ulcerative), unspecified; M19.90 Unspecified osteoarthritis, unspecified site; Z79.1 Long term (current) use of non-steroidal anti-inflammatories (NSAID); Z79.899 Other long term (current) drug therapy; Z68.22 Body mass index [BMI] 22.0-22.9, adult; Z85.3 Personal history of malignant neoplasm of breast; Z80.9 Family history of malignant neoplasm, unspecified
CPT/HCPCS: 36415; 36600; 71045; 71046; 80048; 80053; 81003; 81015; 82607; 82728; 82803; 83540; 83550; 83605; 83615; 83735; 83880; 84484; 85025; 85045; 85060; 85610; 85652; 85730; 86140; 86850; 86900; 86901; 87040; 87086; 87641; 93005; 93306; 94640; 94660; 94668; 99219; 99233; 99284; A9270-GY; G0378; J0282; J0692; J1160; J1450; J1940; J2270; J2920; J2930; J3480; J3490; P9035; Q5101